=== PATIENT | female | born 1935 | race Caucasian/White ===

== ENCOUNTER 2016-07-10 09:48 | Day surgery (SDC) | payer OTHER ==
[2016-07-09 12:25] LABS: HEMATOCRIT 26.4 % (37.0-47.0); MCH 26.7 PG (27-31); MCHC 30.3 g/dL (33-37); MPV 9.3 FL (7.4-10.4)
[2016-07-10] MEDS ORDERED: BENADRYL ONE (10:08)
[2016-07-10] MEDS ORDERED: TYLENOL ONE (10:08)
[2016-07-10] MEDS ORDERED: NS 250 ML ONE (10:09)
[2016-07-10 14:57] VITALS: BP 107/61
== END 2016-07-10 14:53 | disposition home or self-care (01) ==
LOC: INF 09:48
PROVIDERS: ATTEND Internal Medicine Hematology & Oncology
DX: D64.9 Anemia, unspecified (principal); Z79.899 Other long term (current) drug therapy; Z79.51 Long term (current) use of inhaled steroids
CPT/HCPCS: 36430; 85027; 86850; 86870; 86900; 86901; 86922; J7050; P9016

== ENCOUNTER 2016-07-15 09:06 | Day surgery (SDC) | payer OTHER ==
[2016-07-15] MEDS ORDERED: NS 250 ML ONE (10:14)
[2016-07-15 10:17] LABS: INR 0.99; PROTIME 10.5 Seconds (9.2-11.7); PTT 25.7 Seconds (22.0-36.0)
== END 2016-07-15 11:15 | disposition home or self-care (01) ==
LOC: CATH 09:06
PROVIDERS: ATTEND Internal Medicine Hematology & Oncology
DX: C16.9 Malignant neoplasm of stomach, unspecified (principal)
CPT/HCPCS: 36569; 85610; 85730; J7050

== ENCOUNTER 2016-07-20 15:31 | Inpatient (IN) | payer OTHER ==
[2016-07-20] MEDS ORDERED: NS 1,000 ML IV ONE (16:07)
[2016-07-20] MEDS ORDERED: ZOFRAN IV ONE (16:07)
[2016-07-20 16:27] LABS: ALLEN TEST NO; BE 2.7 mmoll (-3.0-3.0); BLOOD TYPE ARTERIAL; DRAW SITE R BRACHIAL; METHB 1.4 % (0.0-1.5); O2(CT) 14.7 mL/dL (15.0-23.0); PCO2(98.6) 34 mmHg (35-45); PO2(98.6) 89 mmHg (60-100); SAMPLE BLOOD; SAO2 97.1 % (95.0-100.0); pH(98.6) 7.49 (7.35-7.45)
[2016-07-20 16:28] LABS: MODALITY CANNULA
--- NOTE | 2016-07-20 16:34 | PROVIDER DOCUMENTATION ---
HPI-Respiratory General - General Chief Complaint: Shortness of Breath Time Seen by Provider: 07/20/16 15:37 Source: family Allergies/Adverse Reactions: Patient Allergies Allergy/AdvReac Type Severity Reaction Status Date / Time aspirin Allergy SHORTNESS Verified 02/02/15 13:36 OF BREATH Penicillins Allergy ANAPHYLAXIS Verified 02/02/15 13:36 prednisone AdvReac Unknown Verified 02/02/15 13:36 Home Medications: Home Medication List Medication Instructions Recorded Confirmed Last Taken Type Albuterol Sulfate [Albuterol 8.5 gm IH DIRECTED 02/02/15 07/20/16 07/20/16 11 :20 History Sulfate Hfa] Folic Acid 1 mg PO DAILY 02/02/15 07/20/16 07/20/16 11:20 History Prednisone 2.5 mg PO DIRECTED 02/02/15 07/20/16 07/20/16 11:20 History Fluticasone/Vilanterol [Breo 1 each IH DAILY 07/10/16 07/20/16 07/20/16 11:20 History Ellipta Inhaler] Furosemide [Lasix] 20 mg PO PREMED 07/10/16 07/20/16 07/20/16 11:20 History Potassium Chloride 10 meq PO DAILY 07/10/16 07/20/16 07/15/16 History Hydrocodone/Acetaminophen [[place] 0.5 tab PO PRN PRN 07/20/16 07/20/16 07/20/16 13:30 History 5-325 Tablet] - History of Present Illness-Resp Nature of Presenting Problem: Per Family, patient is a 81 yo F that presents to the ER with generalized weakness, shortness of breath, and cough/congestion x 5 to 6 days. patient was recently dx with stomach CA. patient since has had steady decline in health with lethargy and weakness. She normally took care of herself prior to chemo( 1st round). Denies fever chills, n/v/d. Quality of Pain: reports: none Severity in ED: reports: moderate Onset/Duration: reports: gradual, 5 days ago, 6 days ago Timing: reports: still present, constant Context: reports: recent chemotherapy Cough Quality/Degree: reports: moderate, productive cough Current Respiratory Medication Therapy: Initiated see nurses note Modifying Factors: worse with: coughing Associated Symptoms: reports: cough, shortness of breath, short of breath, other (weakness, lethargy). denies: fever/chills, flu-like symptoms, nasal congestion, nasal drainage Similar Symptoms Previously?: No Recently seen or treated by another doctor?: Yes Review of Systems - Adult - REVIEW OF SYSTEMS - ADULT Constitutional: reports: fatique. denies: chills, fever Eyes: reports: no symptoms reported Ears, Nose, Mouth & Throat: denies: ear discharge, ear pain, sinus problem, throat pain, throat swelling Cardiovascular: denies: chest pain, palpitations, syncope Respiratory: reports: cough, shortness of breath, wheezing Gastrointestinal: denies: abdominal pain, diarrhea, nausea, vomiting Genitourinary: reports: no symptoms reported Musculoskeletal: reports: muscle weakness. denies: back pain, neck pain Integumentary: reports: no symptoms reported Neurological: denies: dizziness/vertigo, seizure, slurred speech, syncope Psychiatric: reports: no symptoms reported Endocrine: reports: no symptoms reported Hematologic/Lymphatic: reports: no symptoms reported Allergic/Immunologic: reports: no symptoms reported All Other Systems: Reviewed and Negative Past History - Adult - PAST MEDICAL HISTORY-ADULT Review of Records: reports: Old Records Reviewed, Nursing Assessment Review, Medications Reviewed Respiratory: reports: asthma, COPD Gastrointestinal: reports: cancer (stomach) Musculoskeletal: reports: fibromyalgia Endocrine/Immune: reports: thyroid disorder - PRIOR SURGERIES/PROCEDURES Surgical/Procedure History: reports: cholecystectomy, indwelling device - IMMUNIZATION STATUS Childhood Immunizations: See Nurse Assessment Flu Vaccine: See Nurse Assessment - FAMILY HISTORY Family History: reviewed, not pertinent - SOCIAL HISTORY Smoking: non-smoker Living Situation: family Physical Exam-General - PHYSICAL EXAM-ADULT Initial Vital Signs Reviewed: Yes - CONSTITUTIONAL General Appearance: mild distress, lethargic, other (ill appearing) - EYES Eyes: PERRL/EOMI, pink conjunctivae - HEAD, EARS, NOSE, MOUTH & THROAT HENMT: normocephalic/atraumatic, moist mucous membranes, normal ENT inspection - NECK Neck: full range of motion, normal inspection. negative: lymphadenopathy - RESPIRATORY Respiratory: no respiratory distress, no accessory muscle use, crackles ( bilaterally) - CARDIOVASCULAR Cardiovascular: regular rate, rhythm, no edema, no JVD - GASTROINTESTINAL (ABDOMEN) Abdominal Exam: normal bowel sounds, non tender, soft, no organomegaly, no pulsatile mass - MUSCULOSKELETAL Extremity: normal range of motion, normal inspection - SKIN Integumentary: normal color, warm/dry - NEUROLOGIC Neurologic: grossly normal, no motor/sensory deficits - PSYCHIATRIC Psych/Mental Status: normal mood/affect, normal thought content, normal thought process, oriented x 3 Progress - PLAN OF CARE/RESULTS Progress/Plan/Lab Results: Vital Signs Temp Pulse Resp BP Pulse Ox 07/20/16 16:22 80 22 99/67 99 07/20/16 15:35 98.2 F 84 19 109/63 99 aspirin Allergy (Verified 02/02/15 13:36) SHORTNESS OF BREATH Penicillins Allergy (Verified 02/02/15 13:36) ANAPHYLAXIS prednisone Adverse Reaction (Verified 02/02/15 13:36) Unknown "if I take too much of it I see little things and I blow up like the [place] blimp" able to take in small dosages Albuterol Sulfate [Albuterol Sulfate Hfa] 8.5 gm IH DIRECTED 02/02/15 Folic Acid 1 mg PO DAILY 02/02/15 Prednisone 2.5 mg PO DIRECTED 02/02/15 Fluticasone/Vilanterol [Breo Ellipta Inhaler] 1 each IH DAILY 07/10/16 Furosemide [Lasix] 20 mg PO PREMED 07/10/16 Potassium Chloride 10 meq PO DAILY 07/10/16 Hydrocodone/Acetaminophen [[place] 5-325 Tablet] 0.5 tab PO PRN PRN 07/20/16 Laboratory 07/20/16 07/20/16 07/20/16 17:10 16:20 15:50 WBC RBC Hgb Hct MCV MCH MCHC RDW Std Deviation Plt Count MPV Immature Gran % (Auto) Neut % (Auto) Lymph % (Auto) [place] % (Auto) Eos % (Auto) Baso % (Auto) Immature Gran # (Auto) Neut # (Auto) Lymph # (Auto) [place] # (Auto) Eos # (Auto) Baso # (Auto) PT INR PTT (Actin FS) D-Dimer Specimen Type ARTERIAL Sample Site R BRACHIAL pH 7.49 H pCO2 34 L pO2 89 HCO3 27.0 H Base Excess 2.7 Oxyhemoglobin 94.4 L ABG O2 Sat (Calculated) 14.7 L ABG O2 Saturation 97.1 ABG Carboxyhemoglobin 1.40 ABG Methemoglobin 1.4 Eleazar Test NO A-a O2 Difference 68.0 Total Hemoglobin 11.0 L Lactate 0.80 Liter Flow 2.0 Blood Gas Modality CANNULA FiO2 % 28.0 Sodium Potassium Chloride Carbon Dioxide Anion Gap BUN Creatinine Estimated GFR/1.73 m2 BUN/Creatinine Ratio Glucose Calculated Osmolality Calcium Magnesium Total Bilirubin AST ALT Alkaline Phosphatase Creatine Kinase Troponin T < 0.010 Gxt-N-Uerlgntpvrt Pept Total Protein Albumin Globulin Albumin/Globulin Ratio Urine Source CATH Urine Color STRAW Urine Turbidity CLEAR Urine pH 5.0 Ur Specific [place] 1.008 Urine Protein NEGATIVE Ur Glucose (Stick) NEGATIVE Ur Ketones (Stick) NEGATIVE Urine Blood NEGATIVE Urine Nitrite NEGATIVE Urine Bilirubin NEGATIVE Urobilinogen Dipstick NORMAL Urine Leukocytes SMALL A Urine WBC (Auto) <10 Urine RBC (Auto) <10 U Epithel Cells (Auto) <10 Urine Bacteria (Auto) NEGATIVE 07/20/16 07/20/16 07/20/16 15:50 15:50 15:50 WBC RBC Hgb Hct MCV MCH MCHC RDW Std Deviation Plt Count MPV Immature Gran % (Auto) Neut % (Auto) Lymph % (Auto) [place] % (Auto) Eos % (Auto) Baso % (Auto) Immature Gran # (Auto) Neut # (Auto) Lymph # (Auto) [place] # (Auto) Eos # (Auto) Baso # (Auto) PT 10.1 INR 0.95 PTT (Actin FS) 24.5 D-Dimer 1.38 H Specimen Type Sample Site pH pCO2 pO2 HCO3 Base Excess Oxyhemoglobin ABG O2 Sat (Calculated) ABG O2 Saturation ABG Carboxyhemoglobin ABG Methemoglobin Eleazar Test A-a O2 Difference Total Hemoglobin Lactate Liter Flow Blood Gas Modality FiO2 % Sodium Potassium Chloride Carbon Dioxide Anion Gap BUN Creatinine Estimated GFR/1.73 m2 BUN/Creatinine Ratio Glucose Calculated Osmolality Calcium Magnesium Total Bilirubin AST ALT Alkaline Phosphatase Creatine Kinase Troponin T Aqh-M-Ovettfdiaqh Pept 2398 H Total Protein Albumin Globulin Albumin/Globulin Ratio Urine Source Urine Color Urine Turbidity Urine pH Ur Specific [place] Urine Protein Ur Glucose (Stick) Ur Ketones (Stick) Urine Blood Urine Nitrite Urine Bilirubin Urobilinogen Dipstick Urine Leukocytes Urine WBC (Auto) Urine RBC (Auto) U Epithel Cells (Auto) Urine Bacteria (Auto) 07/20/16 07/20/16 15:50 15:50 WBC 16.54 H RBC 3.87 L Hgb 10.3 L Hct 33.4 L MCV 86.3 MCH 26.6 L MCHC 30.8 L RDW Std Deviation 19.4 H Plt Count 81 L MPV 10.6 H Immature Gran % (Auto) 0.7 H Neut % (Auto) 92.4 H Lymph % (Auto) 3.0 L [place] % (Auto) 3.8 Eos % (Auto) 0.0 Baso % (Auto) 0.1 Immature Gran # (Auto) 0.11 H Neut # (Auto) 15.29 H Lymph # (Auto) 0.49 L [place] # (Auto) 0.63 H Eos # (Auto) 0.00 Baso # (Auto) 0.02 PT INR PTT (Actin FS) D-Dimer Specimen Type Sample Site pH pCO2 pO2 HCO3 Base Excess Oxyhemoglobin ABG O2 Sat (Calculated) ABG O2 Saturation ABG Carboxyhemoglobin ABG Methemoglobin Eleazar Test A-a O2 Difference Total Hemoglobin Lactate Liter Flow Blood Gas Modality FiO2 % Sodium 137 Potassium 3.3 L Chloride 98 Carbon Dioxide 26 Anion Gap 13 BUN 29 H Creatinine 1.6 H Estimated GFR/1.73 m2 31 BUN/Creatinine Ratio 18 Glucose 88 Calculated Osmolality 279 Calcium 8.0 L Magnesium 1.8 Total Bilirubin 0.48 AST 10 ALT 7 L Alkaline Phosphatase 139 H Creatine Kinase 31 Troponin T Dkg-S-Igjeoocpdun Pept Total Protein 4.8 L Albumin 2.5 L Globulin 2.3 Albumin/Globulin Ratio 1.1 Urine Source Urine Color Urine Turbidity Urine pH Ur Specific [place] Urine Protein Ur Glucose (Stick) Ur Ketones (Stick) Urine Blood Urine Nitrite Urine Bilirubin Urobilinogen Dipstick Urine Leukocytes Urine WBC (Auto) Urine RBC (Auto) U Epithel Cells (Auto) Urine Bacteria (Auto) Orders Category Date Time Status Cardiac Monitoring DIRECTED Care 07/20/16 16:07 Active Saline Loc NOW Care 07/20/16 16:07 Active CHEST-PORTABLE [RAD] Stat Exams 07/20/16 16:07 Draft ABG [RESP] Routine Lab 07/20/16 16:20 Completed BLOOD CULTURE [BLDCUL] Stat Lab 07/20/16 16:42 Received CBC WITH ELECTRONIC DIFF [HEME] Stat Lab 07/20/16 15:50 Completed CK PROFILE [SP CHEM] Stat Lab 07/20/16 15:50 Completed COMPREHENSIVE METABOLIC PANEL [CHEM] Stat Lab 07/20/16 15:50 Completed D-DIMER [CHEM] Stat Lab 07/20/16 15:50 Completed LACTATE, PLASMA [CHEM] Stat Lab 07/20/16 16:21 Ordered MAGNESIUM [CHEM] Stat Lab 07/20/16 15:50 Completed PRO B-NATRIURETIC PEPTIDE Stat Lab 07/20/16 15:50 Completed PROTIME WITH INR [COAG] Stat Lab 07/20/16 15:50 Completed PTT [COAG] Stat Lab 07/20/16 15:50 Completed TROPONIN T Stat Lab 07/20/16 15:50 Completed UA NIMS W/REFLEX CULT [URINALYSIS] Stat Lab 07/20/16 17:10 Results URINE CULTURE [RM] Routine Lab 07/20/16 17:26 Received URINE MANUAL MICROSCOPIC [URINALYSIS] Stat Lab 07/20/16 17:10 Results 0.9% Sodium Chloride Inj [Ns] 1,000 ml Med 07/20/16 16:07 Active IV 250 mls/hr Albuterol 2.5MG/Ipratrop 0.5MG [Duoneb (A & A)] Med 07/20/16 17:29 Discontinued 3 ml INH NOW ONE Levofloxacin 500 mg/D5w [Levaquin 500 mg/D5w] 100 ml Med 07/20/16 17:27 Active IV NOW Ondansetron [Zofran] Med 07/20/16 16:07 Discontinued 4 mg IV NOW ONE Aerosol Treatments Routine Oth 07/20/16 17:29 Active Aerosol Treatments Stat Oth 07/20/16 17:29 Active EKG [EKG] Stat Ther 07/20/16 16:07 Ordered - EKG 1 Time of EKG reading by physician:: 17:26 EKG Read and Signed by:: Aicha Huang EKG Interpretation (*Must complete 3 of following elements*): Abnormal Rate: 83 Rhythm: Sinus Rhythm with PACs Lookout: left QRS: LBB, RBB (incomplete) ST Wave: normal - XRAY 1 XRAY Study: Chest Impression: Abnormal XRAY Interpretation: low lung volumes, no acute pathology per - CONSULTS/PCP/HOSPITALIST Notification #1 *Consult/PCP/Hospitalist*: Time Discussed: 17:35 Consult Disposition: Will see in ED, Admit Departure - Departure Time of Disposition Order: 17:36 DIAGNOSIS: Generalized weakness, Shortness of breath, Lethargy Stomach cancer Qualifiers: Malignant neoplasm of stomach location: unspecified location Qualified Code(s) : C16.9 - Malignant neoplasm of stomach, unspecified Disposition: ADMITTED INPATIENT 09 Certified Medical Emergency: Emergent Condition: Stable Attestation - Scribe Verification/Attestation Scribe:: Joseph Brown Acting as Scribe for:: Aicha Huang Scribe documention review:: This chart was documented by a scribe and accurately reflects the service the provider performed and the decisions made by the provider. Physician Attestation - Physician Attestation I, the provider, attest to the following statement:: Aicha Huang Physician documentation Attestation:: This documentation recorded by the scribe accurately reflects the service I personally performed and the decisions made by me.
[2016-07-20 16:59] LABS: BASO% 0.1 % (0.0-0.8); HEMATOCRIT 33.4 % (37.0-47.0); HEMOGLOBIN 10.3 g/dL (12.0-16.0); IMM GRAN# 0.11 X1000 (0.0-0.04); IMM GRAN% 0.7 % (0.0-0.5); LYMPH# 0.49 X1000 (1.2-3.4); MANUAL DIFF NEEDED? NO; MCH 26.6 PG (27-31); MCHC 30.8 g/dL (33-37); MCV 86.3 FL (81-99); MONO# 0.63 X1000 (0.11-0.59); MONO% 3.8 % (1.7-9.3); MPV 10.6 FL (7.4-10.4); NEUT% 92.4 % (42.2-75.2); PLT 81 X1000 (130-400); RBC 3.87 XMIL (4.2-5.4)
[2016-07-20 17:03] LABS: INR 0.95; PROTIME 10.1 Seconds (9.2-11.7); PTT 24.5 Seconds (22.0-36.0)
--- NOTE | 2016-07-20 17:08 | Diag Imaging Result Document ---
PROCEDURE NAME: CHEST-PORTABLE - 07/20/2016 SINGLE FRONTAL RADIOGRAPH OF THE CHEST: COMPARISON: 10/25/2012. FINDINGS: A right PICC line is in place with the tip projecting over the lower SVC in the region of the atriocaval junction in the expected position. Inspiration is suboptimal and there is elevation of the right hemidiaphragm similar to the previous study. The lungs are grossly clear, otherwise. There is no definite pleural fluid collection. Cardiac silhouette and central vasculature are grossly unremarkable for an AP study. IMPRESSION: Low lung volumes, but no definite acute pathology by plain radiograph.
[2016-07-20 17:19] LABS: URINE SOURCE CATH
[2016-07-20 17:19] LABS: ALBUMIN 2.5 g/dL (3.5-5.0); MAGNESIUM 1.8 mg/dL (1.5-2.7); POTASSIUM 3.3 mmol/L (3.5-5.1); TOTAL BILIRUBIN 0.48 mg/dL (0.20-1.00); TOTAL PROTEIN 4.8 g/dL (6.3-8.3)
[2016-07-20 17:23] LABS: BILIRUBIN URINE NEGATIVE (NEGATIVE); BLOOD URINE NEGATIVE (NEGATIVE); COLOR STRAW; GLUCOSE URINE NEGATIVE (NEGATIVE); LEUKOCYTES URINE SMALL (NEGATIVE); NITRITE URINE NEGATIVE (NEGATIVE); PROTEIN URINE NEGATIVE (NEGATIVE); SP GRAVITY URINE 1.008; TURBIDITY URINE CLEAR (CLEAR); URINE MICRO REVIEW NEEDED? YES; UROBILINOGEN URINE NORMAL (NORMAL)
[2016-07-20 17:25] LABS: UR EPITHELIAL CELLS <10 /HPF (<10); URINE BACTERIA NEGATIVE /HPF; URINE CULTURE NEEDED? YES; URINE RBC <10 /HPF (<10); URINE WBC <10 /HPF (<10)
[2016-07-20] MEDS ORDERED: LEVAQUIN 500 MG/D5W 100 ML IV ONE (17:27)
[2016-07-20] MEDS ORDERED: DUONEB (A & A) INH ONE (17:29)
[2016-07-20 17:43] LABS: URINE CASTS NONE SEEN; URINE CRYSTALS NONE SEEN; URINE SMALL ROUND CELLS NONE SEEN
[2016-07-20] MEDS: NS 1,000 ML IV ONE ×2 (17:56→19:09)
[2016-07-20] MEDS ORDERED: DILAUDID IV PRN (17:59)
[2016-07-20] MEDS ORDERED: ZOFRAN IV PRN (18:00)
[2016-07-20] MEDS: SODIUM CHLORIDE 0.9% INJ SCH (18:24)
[2016-07-20] MEDS: PROTONIX IV SCH (18:24)
[2016-07-20] MEDS ORDERED: POTASSIUM CHLORIDE 40 MEQ/SWI 100 ML IV ONE (18:30)
[2016-07-20] MEDS ORDERED: LASIX IV ONE (18:44)
[2016-07-20] MEDS ORDERED: LEVAQUIN 500 MG in NS 100 ML IV SCH (19:00)
[2016-07-20] MEDS: DUONEB (A & A) INH SCH ×2 (19:30→23:30)
[2016-07-20] MEDS: MUCOMYST 20% INH SCH (19:30)
[2016-07-20] MEDS: SOLU-MEDROL IV SCH (20:17)
--- NOTE | 2016-07-20 21:04 | Diag Imaging Result Document ---
PROCEDURE NAME: THORAX/ABDOMEN/PELVIS W/O CONT - 07/20/2016 STUDY: CT chest, abdomen and pelvis without contrast. No pleural effusions. The heart is mildly prominent. There are calcified mediastinal and left hilar lymph nodes, and there is a calcified granuloma in the left lower lobe. No enlarged noncalcified nodes. Increased markings in the lung bases believed to be a combination of atelectasis and bronchiectasis. No consolidation. I do not identify any lung nodules. Mild scoliosis. IMPRESSION: 1. Basilar atelectasis and bronchiectasis. 2. No pneumonia although there is evidence of a prior granulomatous infection. STUDY: Abdomen and pelvis without oral or intravenous contrast. COMPARISON: Compared to a recent MRI of the abdomen and a PET CT. There is a small amount of fluid about the liver. This has increased compared to the prior exams. There is marked thickening to the gastric wall with multiple perigastric masses. These were present on the prior studies. No interval improvement. Enlarged right adrenal gland similar to the prior studies. The gallbladder has been removed. Normal spleen and left adrenal gland. There is a nonobstructing right renal stone. No hydronephrosis. No aortic aneurysm. Mildly prominent paraaortic lymph nodes similar to the prior studies. The spleen is mildly prominent. No bowel obstruction. The urinary bladder is distended and appears normal. There is a small amount of free fluid within the pelvis. I believe there is a uterine fibroid. This is unchanged. There are scattered colonic diverticula. Trace fluid in the left pericolic gutter. IMPRESSION: Slight interval increase in the amount of fluid about the liver, otherwise stable CT of the abdomen and pelvis. A preliminary report was given at 7:54 p.m. [facility]
--- NOTE | 2016-07-20 22:38 | HISTORY AND PHYSICAL ---
PRIMARY CARE PHYSICIAN: Reno Cary M.D. ONCOLOGIST: Bang Gonzalez M.D. CHIEF COMPLAINT: A 4-day history of increasing shortness of breath and productive cough. HISTORY OF PRESENT ILLNESS: Ms. Moura is a 81-year-old female with a history of recently diagnosed metastatic gastric cancer, morbid obesity and COPD who was brought to the ER by family after the patient was noted to be short of breath and lethargic. According to the patient's daughter the patient has been suffering from increasing shortness of breath and productive cough for the last 3 days. The patient does have a history of chronic obstructive pulmonary disorder and is on several bronchodilators at home. The patient was diagnosed with metastatic gastric cancer about a month ago and the patient had her first chemotherapy treatment last week. According to family, the patient's appetite was good up until this past weekend where the patient just did not feel like eating or drinking anything. The patient denied having any chest pain, headache , dizziness or recent syncopal episodes. In the ER, the patient was noted to have a white count of 16,000 and a BUN of 29 with a creatinine of 1.6. A chest x-ray was done that was unremarkable. PAST MEDICAL HISTORY: 1. Metastatic gastric carcinoma. 2. COPD. 3. Morbid obesity. 4. Polymyalgia rheumatica. 5. Psoriasis. PAST SURGICAL HISTORY: Cholecystectomy. SOCIAL HISTORY: Patient lives at home with family. She is a nonsmoker and does not drink alcoholic beverages. FAMILY HISTORY: Noncontributory due to age. ALLERGIES: 1. Aspirin. 2. Penicillin. 3. Prednisone. HOME MEDICATIONS: 1. Prednisone 2.5 mg p.o. as directed. 2. [place] 5/325, 1 tab half oral every 4 hours p.r.n. for pain 3. Folic acid 1 mg p.o. daily. 4. Breo 1 inhalation daily. 5. Albuterol inhaler q.4 hours p.r.n. for shortness of breath. 6. Potassium chloride 10 mEq oral daily. REVIEW OF SYSTEMS: All other review of systems are negative. Please refer to the history of present illness for pertinent positives and negatives. PHYSICAL EXAMINATION: VITAL SIGNS: Temperature 98.6 degrees, blood pressure 100/68, heart rate 81, respirations 16, O2 saturations 99% on 3 L nasal cannula. GENERAL: This is an elderly female who appears to be chronically ill, lying comfortably in bed, in no acute distress. HEAD: Normocephalic, atraumatic. NECK: Supple. No JVD. No lymphadenopathy. HEART: S1, S2 normal. Regular rate and rhythm. LUNGS: Coarse breath sounds bilaterally with diffuse rhonchi. ABDOMEN: Positive bowel sounds. Soft, obese, nontender, nondistended. EXTREMITIES: No edema. No cyanosis. No calf tenderness. NEUROLOGIC: The patient is alert and oriented x3. No focal neurologic deficits noted. LABS: White blood cell count 16.5, hemoglobin 10.3, hematocrit 33.4, platelets 81,000. ABG: pH 7.49, pCO2 34, PO2 89, bicarbonate 27, sodium 137, potassium 3.3, chloride 98, CO2 26, BUN 29, creatinine 1.6, glucose 88, calcium 8, magnesium 1.8, alkaline phosphatase 139, ammonia 46, troponin less than 0.01. ProBNP 2399, albumin 2.5. Chest x-ray shows low lung volumes. ASSESSMENT AND PLAN: 1. Acute bronchitis. We will check a sputum Gram stain and culture. We will start the patient on IV antibiotics and scheduled bronchodilator therapy as well as supplemental oxygen. 2. Acute chronic obstructive pulmonary disease exacerbation. We will start the patient on IV steroids, Mucomyst and bronchodilator therapy. 3. Acute kidney injury. The patient's baseline creatinine is unknown. We will monitor this closely. We will check urine electrolytes and monitor the patient's urine output closely. We will avoid nephrotoxic agents. 4. Leukocytosis. This is most likely secondary to either the bronchitis or recent Neulasta shot. We will continue to monitor this closely. 5. Morbid obesity. Aware. 6. Severe protein calorie malnutrition. We will consult the dietitian. We will start the patient on Ensure dietary supplements. 7. Metastatic gastric carcinoma s/p chemotherapy. Will consult . 8. Thrombocytopenia. We will hold anticoagulation at this time. 9. Gastrointestinal prophylaxis. We will start the patient on IV Protonix. 10. The plan of care was discussed with the patient's family at the bedside. MTDD
[2016-07-20 23:24] LABS: UR CREAT RANDOM 31.1 mg/dL (11-20)
[2016-07-21] MEDS ORDERED: TYLENOL PO PRN (02:41)
[2016-07-21] MEDS: SOLU-MEDROL IV SCH ×2 (03:04→13:19)
[2016-07-21] MEDS: DUONEB (A & A) INH SCH ×6 (03:09→23:08)
[2016-07-21] MEDS: MUCOMYST 20% INH SCH ×2 (07:20→19:49)
--- NOTE | 2016-07-21 07:40 | EKG Report ---
Test Performed on : 07/21/2016 06:09:38 AM Test Reason : chf Blood Pressure : / mmHG Vent. Rate : 094 BPM Atrial Rate : 094 BPM P-R Int : 190 ms QRS Dur : 098 ms QT Int : 370 ms P-R-T Axes : 000 -31 038 degrees QTc Int : 462 ms Sinus rhythm. with premature atrial complexes. Left axis deviation Septal infarct , age undetermined Abnormal ECG When compared with ECG of 20-JUL-2016 17:26, (Unconfirmed) Septal infarct is now present ST now depressed in Inferior leads Confirmed by Edward KIM, Eleazar Nation ([id number]) on 07/21/2016 5:23:33 PM
--- NOTE | 2016-07-21 07:42 | EKG Report ---
Test Performed on : 07/20/2016 5:26:05 PM Test Reason : Chest Pain Blood Pressure : / mmHG Vent. Rate : 083 BPM Atrial Rate : 083 BPM P-R Int : 176 ms QRS Dur : 094 ms QT Int : 382 ms P-R-T Axes : 090 -44 029 degrees QTc Int : 448 ms Sinus rhythm. with premature atrial complexes. Left axis deviation Incomplete right bundle branch block Possible Lateral infarct (cited on or before 02-JUL-2008) Abnormal ECG When compared with ECG of 02-JUL-2008 17:43, premature atrial complexes. are now present Unconfirmed Result
[2016-07-21] MEDS: FOLIC ACID PO SCH (07:59)
[2016-07-21] MEDS: NS 1,000 ML IV SCH (10:23)
[2016-07-21 10:43] LABS: BASO% 0.1 % (0.0-0.8); EOS# 0.01 X1000 (0.0-0.7); HEMATOCRIT 32.7 % (37.0-47.0); HEMOGLOBIN 10.3 g/dL (12.0-16.0); IMM GRAN# 1.07 X1000 (0.0-0.04); IMM GRAN% 4.7 % (0.0-0.5); LYMPH# 0.21 X1000 (1.2-3.4); LYMPH% 0.9 % (20.5-51.1); MANUAL DIFF NEEDED? YES; MCHC 31.5 g/dL (33-37); MCV 85.6 FL (81-99); MONO# 0.55 X1000 (0.11-0.59); MONO% 2.4 % (1.7-9.3); MPV 9.6 FL (7.4-10.4); NEUT% 91.9 % (42.2-75.2); PLT 81 X1000 (130-400); RBC 3.82 XMIL (4.2-5.4)
[2016-07-21 10:50] LABS: ALBUMIN 2.7 g/dL (3.5-5.0); CALCIUM 7.7 mg/dL (8.8-10.2); POTASSIUM 3.5 mmol/L (3.5-5.1)
[2016-07-21 11:10] LABS: BANDS 11 % (0-1); MONO 1 % (1-9)
--- NOTE | 2016-07-21 12:57 | PROGRESS NOTE ---
DATE: 07/21/2016 SUBJECTIVE: The patient is awake and alert this morning. Her respiratory status has improved. OBJECTIVE: Vital Signs: Temperature 98 degrees, blood pressure 101/59, heart rate 107, respirations 20, O2 saturations 99% on 2 L nasal cannula. General: This is a morbidly obese female, lying in bed, in no acute distress. Head: Normocephalic atraumatic. Heart: S1, S2. Normal. Tachycardic. Lungs: Mild expiratory wheezes. No crackles. No rales. Abdomen: Positive bowel sounds. Soft, obese, nontender, nondistended. Extremities: No edema. No cyanosis. No calf tenderness. Neurologic: The patient is alert and oriented. The patient is hard of hearing. LABS: White blood cell count 22, hemoglobin 10, hematocrit 32, platelets 81, 000. Sodium 133, potassium 3.5, chloride 92, CO2 25, BUN 31, creatinine 1.7, glucose 206. ASSESSMENT AND PLAN: 1. Acute chronic obstructive pulmonary disease exacerbation. Improved today. Will switch the patient to prednisone. Continue on levaquin and bronchodilator therapy. 2. Acute kidney injury. This is most likely secondary to dehydration. We will start the patient on normal saline and monitor the patient's urine output closely. 3. Leukocytosis. Multifactorial. The patient recently received a Neulasta shot. We will continue to monitor the white count closely. 4. Morbid obesity. Aware. 5. Severe protein calorie malnutrition. Continue with Ensure with each meal. 6. Metastatic gastric carcinoma. Oncology has been consulted. 7. Thrombocytopenia. Stable. 8. Gastrointestinal prophylaxis. Continue on IV Protonix. 9. Continue with physical therapy. 10. The plan of care was discussed with the patient's daughter at the bedside. [id number]
--- NOTE | 2016-07-21 14:43 | CONSULTATION ---
DATE OF CONSULTATION: 07/21/2016 ADMITTING PHYSICIAN: Dr. Yolanda Mello. REQUESTING PHYSICIAN: Dr. Mello. PRIMARY CARE PHYSICIAN: Dr. Reno Cary. ONCOLOGIST: Dr. Bang Gonzalez. We appreciate this consult. CHIEF COMPLAINT: Gastric adenocarcinoma. HISTORY OF PRESENT ILLNESS: Ms. Moura is a 81-year-old female, who is well known to us with a history of recently diagnosed metastatic gastric cancer who is currently on 5 FU/leucovorin. She is status post her cycle 1, day 1 on 07/16/2016 which she tolerated well. The patient was however brought to the emergency room by her family after she was noted to be short of breath and lethargic. According to the patient's daughter the patient has been having worsening shortness of breath and productive cough for the last 3 days. She does have a history of COPD and chronic bronchitis and is on multiple bronchodilators at home. Upon presentation to [facility] Emergency Department the patient was found to have a white blood cell count of 16,000. Chest x- ray was obtained which was unremarkable. The patient did undergo CT of the chest, abdomen and pelvis which revealed multiple perigastric masses with an enlarged right adrenal gland and mildly prominent para-aortic lymph nodes as well as an increase in fluid in the liver. PAST MEDICAL HISTORY: 1. Metastatic gastric carcinoma. 2. COPD. 3. Morbid obesity. 4. Polymyalgia rheumatica. 5. Psoriasis. PAST SURGICAL HISTORY: Cholecystectomy. SOCIAL HISTORY: The patient does not use alcohol, tobacco or illicit drugs. FAMILY HISTORY: Negative for any oncologic or hematologic problem. MEDICATIONS ON ADMISSION: 1. Prednisone. 2. [place]. 3. Folic acid. 4. Breo. 5. Albuterol. 6. Potassium chloride. ALLERGIES: Aspirin, penicillin, and prednisone. REVIEW OF SYSTEMS: A 14 point review of systems was obtained and is negative except as mentioned in HPI. PHYSICAL EXAM: General Appearance: Ms. Moura is a pleasant 81-year-old, morbidly obese female who is lying supine in bed in no apparent distress. Vital Signs: Temperature 98.1 degrees, blood pressure 101/59, heart rate 98, respirations of 20, O2 saturation is 93% on room air. HEENT: Normocephalic, atraumatic. Mucous membranes are pink and moist. Sclerae anicteric. Extraocular movements intact. Neck: Supple. Lungs: With coarse breath sounds throughout. Chest expansion is equal bilaterally. CV: S1, S2 is heard without murmur, rub or gallop. Abdomen: Soft, nondistended, nontender. Bowel sounds positive all quadrants. No rebound or guarding noted. Extremities: Without clubbing or cyanosis. She does have 1+ bilateral lower extremity edema. Dermatologic: No rashes, bruises or lesions. Neurologic: The patient is awake, alert, and oriented x3. She has no focal deficits at this time. DIAGNOSTIC DATA: Hemoglobin 10.3, hematocrit 33.4. White blood cell count 16.54, platelets 81,000, ANC is 15.29, INR 0.95. Sodium 137, potassium 3.3, chloride 98, CO2 is 26, BUN 29, creatinine 1.6, and glucose is 88. EKG reveals sinus rhythm with PACs. CT of the chest, abdomen and pelvis reveals multiple perigastric masses with an enlarged right adrenal gland and mildly prominent para-aortic lymph nodes as well as an increase in fluid in the liver. ASSESSMENT AND PLAN: 1. Locally advanced gastric adenocarcinoma recently diagnosed. The patient is status post cycle 1, day 1 of 5 FU/leucovorin on 07/16/2016. The patient did tolerate treatment well and had no significant adverse events following treatment. Presently we will hold treatment until the patient's acute illness is over. 2. Acute bronchitis currently on Levaquin which is improving. 3. Exacerbation of chronic obstructive pulmonary disease. On IV Solu-Medrol at this time. The patient reports improvement of dyspnea as well. 4. Acute kidney insufficiency which is improving on IV fluids. Creatinine is currently 1.6. 5. Leukocytosis with a white blood cell count of 16.54 which is probably secondary to #2. We will continue to follow CBC. 6. Morbid obesity which is stable. 7. Thrombocytopenia with a platelet count of 88,000. The patient denies any recent bleeding or easy bruising. We will continue to follow the patient's CBC. 8. We will follow along with you and make further recommendations pending outcomes. The above reflects the history, exam, assessment and plan of Dr. Gonzalez. Dictated by JIGNESH Fine for Bang Gonzalez MD
[2016-07-21 14:45] LABS: FREE T4 0.61 ng/dL (0.93-1.70)
--- NOTE | 2016-07-21 15:35 | ECHO REPORT ---
ORDER DATE: 07/21/2016 INDICATION: CHF, shortness of breath, cough, COPD. FINDINGS: 1. Right atrium is normal size at 3 cm. 2. Trace tricuspid regurgitation. RV systolic pressure 34. 3. Normal RV size and systolic function. 4. Trace pulmonic insufficiency. 5. Normal left atrial size at 3.6 cm. 6. No mitral valve prolapse. Trace mitral regurgitation. 7. Normal LV size, end-diastolic dimension of 4 cm. Normal wall thicknesses with a posterior and interventricular septal wall thickness of 0.6 and 0.7 cm respectively. LV systolic function does appear to be hyperdynamic with an estimated EF greater than 70%. 8. Aortic valve appears to open well. Is sclerotic but no significant stenosis is noted. There is trace aortic insufficiency. 9. Aorta appears dilated at the root in the ascending thoracic aorta with a measure of 4 cm. 10. There is no pericardial effusion identified.
[2016-07-21] MEDS: PROTONIX IV SCH (18:03)
[2016-07-21] MEDS: LEVAQUIN 500 MG/D5W 100 ML IV SCH (18:03)
[2016-07-22] MEDS: NS 1,000 ML IV SCH (00:42)
[2016-07-22] MEDS: DUONEB (A & A) INH SCH ×6 (03:12→22:58)
[2016-07-22] MEDS: MUCOMYST 20% INH SCH ×2 (07:43→19:33)
[2016-07-22 09:04] LABS: MANUAL DIFF NEEDED? YES
[2016-07-22 09:09] LABS: ALBUMIN 2.9 g/dL (3.5-5.0); CALCIUM 8.2 mg/dL (8.8-10.2); POTASSIUM 3.8 mmol/L (3.5-5.1); TOTAL BILIRUBIN 0.31 mg/dL (0.20-1.00); TOTAL PROTEIN 5.3 g/dL (6.3-8.3)
[2016-07-22] MEDS: PREDNISONE PO SCH (09:09)
[2016-07-22] MEDS: FOLIC ACID PO SCH (09:10)
[2016-07-22 09:18] LABS: HEMATOCRIT 37.1 % (37.0-47.0); HEMOGLOBIN 10.9 g/dL (12.0-16.0); MCH 27.1 PG (27-31); MCHC 29.4 g/dL (33-37); MCV 92.3 FL (81-99); MPV 12.3 FL (7.4-10.4); PLT 86 X1000 (130-400); RBC 4.02 XMIL (4.2-5.4)
[2016-07-22 09:26] LABS: BANDS 9 % (0-1)
[2016-07-22] MEDS ORDERED: VANCOMYCIN IV PER PHARMACY MISC SCH (11:00)
[2016-07-22] MEDS: MERREM 500 MG in NS 50 ML IV SCH ×2 (12:58→23:27)
[2016-07-22] MEDS ORDERED: VANCOMYCIN 1,650 MG in NS 250 ML IV ONE (13:00)
[2016-07-22 13:33] LABS: UR PROT RANDOM 12.7 mg/dL
--- NOTE | 2016-07-22 15:00 | PROGRESS NOTE ---
DATE: 07/22/2016 SUBJECTIVE: The patient states that she feels a lot better today. She did get up and walk about 200 feet with the physical therapist. OBJECTIVE: Vital Signs: Temperature 97.9 degrees, blood pressure 103/51, heart rate 88, respirations 18, O2 saturation is 94% on 2 L nasal cannula. General: This is a morbidly obese, elderly female, lying in bed, in no acute distress. Head: Normocephalic, atraumatic. Heart: S1, S2. Normal. Regular rate and rhythm. Lungs: Coarse breath sounds bilaterally with rhonchi. Abdomen: Positive bowel sounds. Soft, obese, nontender, nondistended. Extremities: No edema. No cyanosis. No calf tenderness. Neurologic: The patient is alert and oriented x3. She is hard of hearing. LABS: White blood cell count 22.9, hemoglobin 10, hematocrit 37, platelets 86,000. Sodium 140, potassium 3.8, chloride 87, CO2 20, BUN 30, creatinine 1.8, glucose 66. Urine culture is growing gram-positive cocci. ASSESSMENT AND PLAN: 1. Acute chronic obstructive pulmonary disease exacerbation. Slowly improving. The patient continues to have rhonchi on exam. Her white count remains elevated. Will add Merrem and consult the machine shop specialist for further recommendations. Continue on bronchodilator therapy plus prednisone. We will also check a sputum Gram stain and culture. 2. Locally advanced gastric carcinoma. Management as per the oncologist. 3. Acute kidney injury. The patient's urine output is excellent. However, her creatinine is still slowly rising. Will switch the patient to half normal saline and monitor her urine output closely. If there is no improvement tomorrow will consult the licensed psychiatric technician. 4. Morbid obesity. Aware. 5. Leukocytosis. Unchanged. Continue on IV antibiotic therapy. 6. Thrombocytopenia. Stable. 7. Continue physical therapy.
[2016-07-22] MEDS: 1/2 NS 1,000 ML IV SCH (16:58)
[2016-07-22] MEDS: PROTONIX IV SCH (19:22)
[2016-07-22] MEDS: LEVAQUIN 500 MG/D5W 100 ML IV SCH (19:22)
[2016-07-22] MEDS: SODIUM CHLORIDE 0.9% INJ SCH (19:22)
[2016-07-22] MEDS: MIRALAX PO SCH (23:34)
[2016-07-22] MEDS: DULCOLAX PR SCH (23:34)
[2016-07-23] MEDS: DUONEB (A & A) INH SCH ×6 (03:33→23:31)
--- NOTE | 2016-07-23 04:26 | CONSULTATION ---
DATE OF CONSULTATION: 07/22/2016 REQUESTING PHYSICIAN: Yolanda Mello MD REASON FOR CONSULTATION: COPD exacerbation. HISTORY OF PRESENT ILLNESS: Ms. Moura is a 81-year-old white female, never smoker, who reports she has had lifelong difficulty with breathing. 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 She also could not be around cats because it causes sneezing and shortness of breath. Over the last 20 years, she has required approximately 10 hospitalizations for breathing difficulty. She did see a motel operator at [place] approximately 1 year ago and she has been maintained on albuterol nebulizers. The patient was recently diagnosed with locally advanced gastric cancer and she is undergoing neoadjuvant chemotherapy by the family's description to see if she can undergo a gastroc resection. PAST MEDICAL HISTORY/PROBLEM LIST: 1. Gastric carcinoma as per above. 2. Obesity. 3. Polymyalgia rheumatica. 4. Psoriasis. SOCIAL HISTORY: Patient is a never smoker. No alcohol use. FAMILY HISTORY: Noncontributory to current presentation. PHYSICAL EXAMINATION: General: Reveals an obese, white female, resting comfortably, and in no distress. HEENT: Pupils are equal and reactive oropharynx is clear. Neck: Supple. Chest: Reveals scattered wheezing with rhonchi throughout all lung adler. Cardiac: Distant heart sounds. Normal S1, normal S2. Abdomen: Obese and soft without hepatosplenomegaly. Extremities: Without edema. LABORATORIES: CT scan of the thorax reveals mild atelectasis with minor amounts of bronchiectasis. CT scan of the abdomen reveals slight increase amount of fluid around the liver. Arterial blood gas reveals pH 7.49, pCO2 of 34, PO2 of 89. IMPRESSION: A 81-year-old with lifelong asthma who was admitted to the hospital with an asthma exacerbation. The patient reports she is clinically improving on antibiotics, steroids and nebulizer therapy. The patient is currently being treated for locally advanced gastric carcinoma. RECOMMENDATIONS: 1. Continue antibiotics steroids and nebulizer treatment as you are doing. 2. Please confirm her home dose of Breo because the dosing is not indicated on her intake medicines. If she is on the lower strength (100 mcg), she should be increased to 200 mcg at the time of discharge. 3. Steroid taper over the next 2 weeks. 4. Yearly influenza vaccines. 5. Additional recommendations pending hospital course. I would be more than happy to follow her as an outpatient.
[2016-07-23] MEDS: 1/2 NS 1,000 ML IV SCH ×2 (05:44→09:08)
[2016-07-23 07:21] LABS: BASO% 0.5 % (0.0-0.8); EOS# 0.01 X1000 (0.0-0.7); EOS% 0.1 % (0.0-10.0); HEMATOCRIT 29.2 % (37.0-47.0); IMM GRAN% 2.1 % (0.0-0.5); LYMPH# 0.67 X1000 (1.2-3.4); LYMPH% 3.5 % (20.5-51.1); MANUAL DIFF NEEDED? YES; MCH 26.5 PG (27-31); MCHC 30.8 g/dL (33-37); MCV 86.1 FL (81-99); MONO# 2.09 X1000 (0.11-0.59); MONO% 10.9 % (1.7-9.3); MPV 10.1 FL (7.4-10.4); NEUT% 82.9 % (42.2-75.2); PLT 68 X1000 (130-400); RBC 3.39 XMIL (4.2-5.4)
[2016-07-23] MEDS: MUCOMYST 20% INH SCH ×2 (07:26→19:45)
[2016-07-23 07:47] LABS: ALBUMIN 2.3 g/dL (3.5-5.0); CALCIUM 7.5 mg/dL (8.8-10.2); POTASSIUM 2.7 mmol/L (3.5-5.1); TOTAL BILIRUBIN 0.2 mg/dL (0.20-1.00); TOTAL PROTEIN 4.3 g/dL (6.3-8.3)
[2016-07-23 07:51] LABS: EOS 2 % (1-10); LYMPHS 6 % (21-51); MONO 6 % (1-9)
[2016-07-23] MEDS ORDERED: KLOR-CON PO ONE (09:08)
[2016-07-23] MEDS: MIRALAX PO SCH ×3 (09:09→23:42)
[2016-07-23] MEDS: FOLIC ACID PO SCH (09:09)
[2016-07-23] MEDS: PREDNISONE PO SCH (09:09)
--- NOTE | 2016-07-23 09:52 | Diag Imaging Result Document ---
PROCEDURE NAME: CHEST-2 VIEWS - 07/23/2016 CHEST X-RAY 2 VIEWS, 07/23/2016: COMPARISON: 07/20/2016. FINDINGS: Stable left PICC line. Stable cardiomegaly. There is some ill-defined infiltrate in the posterior costophrenic angle on the lateral view. This is present in both lower lobes on the CT from 07/20/2016. Otherwise, no new infiltrates. IMPRESSION: No change from prior.
[2016-07-23] MEDS: MERREM 500 MG in NS 50 ML IV SCH ×2 (12:42→23:41)
--- NOTE | 2016-07-23 16:05 | PROGRESS NOTE ---
DATE: 07/23/2016 SUBJECTIVE: The patient states that she feels stronger today and is wondering when she can go home. She did have some coughing when she was receiving her bronchodilator treatment this morning, but otherwise states that she feels a whole lot better. OBJECTIVE: Vital Signs: Temperature 98 degrees, blood pressure 126/60, heart rate 113, respirations 21, O2 saturations 98% on 2 L nasal cannula. General: This is an elderly female, lying in bed, in no acute distress. Head: Normocephalic, atraumatic. Heart: S1, S2 normal. Tachycardic. Lungs: Mild expiratory wheezes with coarse breath sounds. Abdomen: Positive bowel sounds. Soft, obese, nontender, nondistended. Extremities: No edema. No cyanosis. No calf tenderness. Neurologic: The patient is alert and oriented x3. The patient is hard of hearing. LABS: White blood cell count 19, hemoglobin 9, hematocrit 29, platelets 68,000. Sodium 139, potassium 2.7, chloride 99, CO2 29, BUN 22, creatinine 1.4. Glucose 101. AST 8, ALT 6, alkaline phosphatase 185, albumin 2.3. ASSESSMENT AND PLAN: 1. Asthma exacerbation. We will continue on prednisone plus antibiotic therapy. The patient appears to be improving and from a clinical standpoint. Pulmonary is following. 2. Acute kidney injury on chronic kidney disease. Improved. Will discontinue the IV fluid at this time. 3. Leukocytosis. Improved. Continue on antibiotic therapy. 4. Metastatic gastric carcinoma, status post chemotherapy. Management as per the oncologist. 5. Morbid obesity, aware. 6. Thrombocytopenia. The patient's platelet count is a little bit lower today. We will monitor this closely. 7. Anemia. The patient's hemoglobin and hematocrit have dropped since yesterday. However, this may be hemo dilutional. We will continue to monitor this as well. DISPOSITION: We will plan to discharge the patient home once cleared by the film historian.
[2016-07-23] MEDS: LEVAQUIN 500 MG/D5W 100 ML IV SCH (17:17)
[2016-07-23] MEDS: PROTONIX IV SCH (17:25)
[2016-07-23] MEDS: DULCOLAX PR SCH (23:42)
[2016-07-24] MEDS: DUONEB (A & A) INH SCH ×2 (03:50→08:52)
[2016-07-24 07:17] LABS: BASO% 0.9 % (0.0-0.8); EOS# 0.01 X1000 (0.0-0.7); HEMATOCRIT 31.7 % (37.0-47.0); HEMOGLOBIN 9.7 g/dL (12.0-16.0); IMM GRAN# 1.57 X1000 (0.0-0.04); IMM GRAN% 7.3 % (0.0-0.5); LYMPH# 0.71 X1000 (1.2-3.4); LYMPH% 3.3 % (20.5-51.1); MANUAL DIFF NEEDED? YES; MCH 26.2 PG (27-31); MCHC 30.6 g/dL (33-37); MCV 85.7 FL (81-99); MONO# 1.87 X1000 (0.11-0.59); MONO% 8.7 % (1.7-9.3); NEUT% 79.8 % (42.2-75.2); PLT 97 X1000 (130-400)
[2016-07-24 07:45] LABS: BANDS 2 % (0-1); LYMPHS 2 % (21-51); MONO 6 % (1-9)
[2016-07-24 08:02] VITALS: BP 100/63
[2016-07-24 08:06] LABS: ALBUMIN 2.7 g/dL (3.5-5.0); CALCIUM 7.6 mg/dL (8.8-10.2); POTASSIUM 3.6 mmol/L (3.5-5.1); TOTAL BILIRUBIN 0.22 mg/dL (0.20-1.00); TOTAL PROTEIN 4.6 g/dL (6.3-8.3)
[2016-07-24] MEDS: MUCOMYST 20% INH SCH (08:52)
[2016-07-24] MEDS: MIRALAX PO SCH (10:03)
[2016-07-24] MEDS: FOLIC ACID PO SCH (10:06)
[2016-07-24] MEDS: PREDNISONE PO SCH (10:06)
[2016-07-24] MEDS ORDERED: VANCOMYCIN 1,250 MG in NS 250 ML IV SCH (13:00)
--- NOTE | 2016-08-03 07:36 | DISCHARGE SUMMARY ---
ADMISSION DATE: 07/20/2016 DISCHARGE DATE: 07/24/2016 FINAL DISCHARGE DIAGNOSES: 1. Acute asthma exacerbation. 2. Acute kidney injury on chronic kidney disease. 3. Leukocytosis. 4. Metastatic gastric carcinoma, status post chemotherapy. 5. Morbid obesity. 6. Thrombocytopenia. 7. Anemia of chronic disease. CONSULTATIONS REQUESTED DURING THIS HOSPITAL STAY: 1. Pulmonary consultation with Ricardo Whyte MD 2. Oncology consultation with Bang Gonzalez MD HOSPITAL COURSE: Ms. Moura is a 81-year-old female, with a history of recently diagnosed metastatic gastric carcinoma, who presented to the ER with generalized weakness and shortness of breath. Upon arrival to the emergency room a CT of the chest, abdomen, and pelvis was done that revealed basal atelectasis and bronchiectasis, but no evidence of pneumonia. The patient was admitted to the hospitalist service and started on IV steroids, bronchodilator therapy, IV antibiotics, and supplemental oxygen. The patient was noted to have acute kidney injury and was treated with IV fluid hydration. Pulmonary, as well as Oncology were consulted for further assistance. Slowly over the course of the hospitalization, the patient's respiratory status improved and her steroids were weaned down to prednisone. The patient was also seen by Physical therapy and did well with ambulation. The patient continued to improve clinically and was cleared for discharge home. DISCHARGE MEDICATIONS: 1. Lasix 20 mg p.o. daily p.r.n. 2. Levaquin 500 mg p.o. daily x5 days. 3. Prednisone taper, use as directed. 4. Breo one inhalation daily. 5. Albuterol 8.5 g inhaled every 4 hours p.r.n. for shortness of breath. 6. Folic acid 1 mg p.o. daily. 7. [place] 5/325, half a tablet oral every 4 hours p.r.n. for pain. DISCHARGE DIET: Regular diet. ACTIVITY: As tolerated. FOLLOWUP INSTRUCTIONS: The patient may need to follow up with Dr. Gonzalez as scheduled by his clinic. The patient will also need to follow up with Dr. Whyte as scheduled by his clinic.
== END 2016-07-24 11:20 | disposition home health service (06) | DRG 191 ==
LOC: ED 15:31 → SUPCPDRO 15:31 → EDIPHOLD 19:51 → 3N 07-21 00:03
PROVIDERS: ATTEND Internal Medicine
DX: J44.1 Chronic obstructive pulmonary disease with (acute) exacerbation (principal); N17.9 Acute kidney failure, unspecified; C79.9 Secondary malignant neoplasm of unspecified site; D69.6 Thrombocytopenia, unspecified; C16.9 Malignant neoplasm of stomach, unspecified; E86.0 Dehydration; E66.01 Morbid (severe) obesity due to excess calories; J45.901 Unspecified asthma with (acute) exacerbation; D63.8 Anemia in other chronic diseases classified elsewhere; N18.9 Chronic kidney disease, unspecified; M35.3 Polymyalgia rheumatica; J20.9 Acute bronchitis, unspecified; Z68.31 Body mass index [BMI] 31.0-31.9, adult; Z79.52 Long term (current) use of systemic steroids; Z79.899 Other long term (current) drug therapy; Z79.51 Long term (current) use of inhaled steroids; L40.9 Psoriasis, unspecified
CPT/HCPCS: 71010; 71020; 71250; 74176; 80053; 80069; 81001; 82140; 82550; 82570; 82805; 83735; 83880; 83935; 84156; 84300; 84439; 84443; 84484; 84540; 85025; 85379; 85610; 85730; 87040; 87070; 87077; 87088; 87186; 87205; 89220; 93005; 93010; 93306; 94640; 94761; 96365; 96366; 96367; 96375; C9113; J1170; J1940; J2185; J2405; J2920; J3370; J3480; J7030; J7050; J7512; 97116-GP; 97530-GP; S0164

== ENCOUNTER 2016-07-31 12:14 | Inpatient (IN) ==
--- NOTE | 2016-07-31 13:36 | ED EKG INTERP ---
EKG Interpretation - EKG Time of EKG reading by physician:: 13:04 EKG Read and Signed by:: Aicha Huang EKG Interpretation (*Must complete 3 of following elements*): Abnormal Rate: 98 (left axis devitation; possible lateral infarct, age undetermined ) Rhythm: atrial fibrillation Attestation - Scribe Verification/Attestation Scribe:: Marilou Earl Acting as Scribe for:: Aicha Huang Scribe documention review:: This chart was documented by a scribe and accurately reflects the service the provider performed and the decisions made by the provider.
[2016-07-31] MEDS ORDERED: CARDIZEM IV ONE (13:37)
[2016-07-31 13:42] LABS: BASO% 0.2 % (0.0-0.8); EOS# 0.02 X1000 (0.0-0.7); EOS% 0.1 % (0.0-10.0); HEMATOCRIT 30.5 % (37.0-47.0); HEMOGLOBIN 9.5 g/dL (12.0-16.0); LYMPH# 0.48 X1000 (1.2-3.4); MANUAL DIFF NEEDED? NO; MCH 27.6 PG (27-31); MCHC 31.1 g/dL (33-37); MCV 88.7 FL (81-99); MONO# 1.16 X1000 (0.11-0.59); MONO% 7.2 % (1.7-9.3); NEUT% 89.5 % (42.2-75.2); PLT 73 X1000 (130-400); RBC 3.44 XMIL (4.2-5.4)
--- NOTE | 2016-07-31 13:44 | Diag Imaging Result Document ---
PROCEDURE NAME: CHEST-2 VIEWS - 07/31/2016 CHEST X-RAY, 2 VIEWS: COMPARISON: 07/29/2016. FINDINGS: Stable left PICC line in good position. There are trace pleural effusions. Stable severely low lung volumes. Heart size remains grossly normal. IMPRESSION: Trace pleural effusions, nonspecific.
--- NOTE | 2016-07-31 13:45 | PROVIDER DOCUMENTATION ---
HPI-General Adult - General Chief Complaint: Shortness of Breath Stated Complaint: Difficulty Breathing Time Seen by Provider: 07/31/16 13:00 Source: patient, family Allergies/Adverse Reactions: Patient Allergies Allergy/AdvReac Type Severity Reaction Status Date / Time aspirin Allergy SHORTNESS Verified 07/31/16 15:18 OF BREATH Penicillins Allergy ANAPHYLAXIS Verified 07/31/16 15:18 Home Medications: Home Medication List Medication Instructions Recorded Confirmed Last Taken Type Albuterol Sulfate [Albuterol 8.5 gm IH DIRECTED 02/02/15 07/31/16 07/31/16 History Sulfate Hfa] Folic Acid 1 mg PO DAILY 02/02/15 07/31/16 07/31/16 History Prednisone 2.5 mg PO QAM 02/02/15 07/31/16 07/31/16 History Hydrocodone/Acetaminophen [Darrow 0.5 tab PO PRN PRN 07/20/16 07/31/16 1 Day Ago History 5-325 Tablet] Fluticasone/Vilanterol [Breo 1 each IH DAILY #1 blst.w.dev 07/24/16 07/31/16 Rx Ellipta 200-25 Mcg INH] Furosemide [Lasix] 20 mg PO DAILY PRN #0 07/24/16 07/31/16 1 Day Ago Rx Levofloxacin [Levaquin] 500 mg PO DAILY #5 tablet 07/24/16 07/31/16 2 Days Ago Rx Benzonatate [Tessalon Perle] 100 mg PO TID PRN 07/31/16 07/31/16 1 Day Ago History Prednisone 2.5 mg PO DIRECTED 07/31/16 07/31/16 07/31/16 History - History of Present Illness -Gen Adult Nature of Presenting Problems: 81 y/o WF currently being treated for gastric cancer with chemotherapy, sent from Dr. Gonzalez (oncologist) office for sob. States had cxr 2 days ago, no pneumonia. She was supposed to received chemo Wednesday, but she was feeling sob with a wbc of 26, so they gave IV antibiotics instead. Patient's family not sure what was given. She is on several chemo medications, one with a pump she goes home on from to Wednesday. No history of cardiac disease, no currently on any blood thinners, no known hx of AFib. She does take breathing treatments 4 x a day at home, and has 3-4 pillow orthopnea. Has been on steroids daily due to recent hospitalization for acute bronchitis. Current chemo is 5-FU/leucorvorin/oxaliplatin every 2 weeks. She is on Nuel[place] as well , however the increase in WBC occurred 2 weeks after the injection, and was stated to not be related by the Mid-level and [facility]. SOb has been increasing over the past week, with a productive cough. Family denies any fevers. Called [facility], She was given Invanz 1 g IV today, and could not get the oxygen saturation above 89%. Review of Systems - Adult - REVIEW OF SYSTEMS - ADULT Constitutional: reports: see HPI, fatique. denies: chills, fever Eyes: reports: no symptoms reported. denies: blurred vision, double vision, eye pain Ears, Nose, Mouth & Throat: reports: no symptoms reported. denies: ear pain, nose pain, throat pain Cardiovascular: reports: see HPI, irregular heart rate. denies: chest pain, palpitations Respiratory: reports: see HPI, cough, shortness of breath, wheezing Gastrointestinal: reports: no symptoms reported. denies: abdominal pain, diarrhea, nausea, vomiting Genitourinary: reports: no symptoms reported. denies: dysuria, discharge, frequency Musculoskeletal: reports: no symptoms reported. denies: bone pain, back pain, muscle aches Integumentary: reports: no symptoms reported Neurological: reports: no symptoms reported. denies: headache/migraines Psychiatric: reports: no symptoms reported Endocrine: reports: no symptoms reported Hematologic/Lymphatic: reports: no symptoms reported Allergic/Immunologic: reports: no symptoms reported All Other Systems: Reviewed and Negative Past History - Adult - PAST MEDICAL HISTORY-ADULT Review of Records: reports: Old Records Reviewed, Nursing Assessment Review, Medications Reviewed Major Childhood Illnesses: reports: denies history Cardiovascular: reports: denies history Respiratory: reports: asthma, COPD Gastrointestinal: reports: cancer (stomach) Obstetrical/Gynecological: reports: denies history Genitourinary: reports: denies history Musculoskeletal: reports: fibromyalgia Neurological: reports: denies history Endocrine/Immune: reports: thyroid disorder Other Conditions: reports: denies history - PRIOR SURGERIES/PROCEDURES Surgical/Procedure History: reports: cholecystectomy, indwelling device - IMMUNIZATION STATUS Childhood Immunizations: See Nurse Assessment Flu Vaccine: See Nurse Assessment - FAMILY HISTORY Family History: reviewed, not pertinent Physical Exam-General - PHYSICAL EXAM-ADULT Initial Vital Signs Reviewed: Yes - CONSTITUTIONAL General Appearance: appears well, alert, mild distress - EYES Eyes: PERRL/EOMI, pink conjunctivae - HEAD, EARS, NOSE, MOUTH & THROAT HENMT: normocephalic/atraumatic, moist mucous membranes, normal ENT inspection - NECK Neck: non-tender, full range of motion, supple, normal inspection. negative: lymphadenopathy - RESPIRATORY Respiratory: chest non-tender, no pleuratic chest pain, no respiratory distress , no accessory muscle use, rhonchi, wheezing. negative: accessory muscle use, crackles, rales - CARDIOVASCULAR Cardiovascular: normal peripheral pulses, regular rate, rhythm - MUSCULOSKELETAL Extremity: normal range of motion, pedal edema (2_ pitting) - SKIN Integumentary: normal color, normal turgor, warm/dry - NEUROLOGIC Neurologic: grossly normal, no motor/sensory deficits - PSYCHIATRIC Psych/Mental Status: normal mood/affect, normal thought content, normal thought process, oriented x 3 Progress - PLAN OF CARE/RESULTS Progress/Plan/Lab Results: Vital Signs Temp Pulse Pulse Pulse Pulse Resp BP 07/31/16 15:39 98 H 16 104/62 07/31/16 15:16 87 24 106/59 07/31/16 14:27 90 24 97/59 07/31/16 14:07 102 H 24 100/60 07/31/16 13:58 48 L 18 07/31/16 13:46 108 H 123 H 90 07/31/16 12:43 98.5 F 42 L 36 H 92/56 BP BP BP Pulse Ox 07/31/16 15:39 97 07/31/16 15:16 97 07/31/16 14:27 98 07/31/16 14:07 96 07/31/16 13:58 99 07/31/16 13:46 94/72 95/70 90/64 07/31/16 12:43 99 aspirin Allergy (Verified 07/31/16 15:18) SHORTNESS OF BREATH Penicillins Allergy (Verified 07/31/16 15:18) ANAPHYLAXIS Albuterol Sulfate [Albuterol Sulfate Hfa] 8.5 gm IH DIRECTED 02/02/15 Folic Acid 1 mg PO DAILY 02/02/15 Prednisone 2.5 mg PO QAM 02/02/15 Hydrocodone/Acetaminophen [Darrow 5-325 Tablet] 0.5 tab PO PRN PRN 07/20/16 Fluticasone/Vilanterol [Breo Ellipta 200-25 Mcg INH] 1 each IH DAILY #1 blst.w.dev 07/24/16 Furosemide [Lasix] 20 mg PO DAILY PRN #0 07/24/16 Levofloxacin [Levaquin] 500 mg PO DAILY #5 tablet 07/24/16 Benzonatate [Tessalon Perle] 100 mg PO TID PRN 07/31/16 Prednisone 2.5 mg PO DIRECTED 07/31/16 Laboratory 07/31/16 07/31/16 07/31/16 13:17 13:17 13:17 WBC RBC Hgb Hct MCV MCH MCHC RDW Std Deviation Plt Count MPV Neut % (Auto) Lymph % (Auto) [place] % (Auto) Eos % (Auto) Baso % (Auto) Neut # (Auto) Lymph # (Auto) [place] # (Auto) Eos # (Auto) Baso # (Auto) PT INR PTT (Actin FS) D-Dimer 2.76 H Sodium Potassium Chloride Carbon Dioxide Anion Gap BUN Creatinine Estimated GFR/1.73 m2 BUN/Creatinine Ratio Glucose Calculated Osmolality Calcium Magnesium Total Bilirubin AST ALT Alkaline Phosphatase Creatine Kinase Troponin T 0.012 Tpn-S-Ympnbckwzxm Pept 1403 H Total Protein Albumin Globulin Albumin/Globulin Ratio 07/31/16 07/31/16 07/31/16 13:17 13:17 13:17 WBC 16.22 H RBC 3.44 L Hgb 9.5 L Hct 30.5 L MCV 88.7 MCH 27.6 MCHC 31.1 L RDW Std Deviation 22.8 H Plt Count 73 L MPV 10.0 Neut % (Auto) 89.5 H Lymph % (Auto) 3.0 L [place] % (Auto) 7.2 Eos % (Auto) 0.1 Baso % (Auto) 0.2 Neut # (Auto) 14.52 H Lymph # (Auto) 0.48 L [place] # (Auto) 1.16 H Eos # (Auto) 0.02 Baso # (Auto) 0.04 PT 11.3 INR 1.07 PTT (Actin FS) D-Dimer Sodium 136 Potassium 3.0 L Chloride 93 L Carbon Dioxide 29 Anion Gap 14 BUN 21 Creatinine 1.4 H Estimated GFR/1.73 m2 36 BUN/Creatinine Ratio 15 Glucose 92 Calculated Osmolality 275 Calcium 7.4 L Magnesium 1.5 Total Bilirubin 0.35 AST 12 ALT 9 L Alkaline Phosphatase 199 H Creatine Kinase 33 Troponin T Ekx-W-Jbccntrsetd Pept Total Protein 4.4 L Albumin 2.6 L Globulin 1.8 Albumin/Globulin Ratio 1.4 07/31/16 13:17 WBC RBC Hgb Hct MCV MCH MCHC RDW Std Deviation Plt Count MPV Neut % (Auto) Lymph % (Auto) [place] % (Auto) Eos % (Auto) Baso % (Auto) Neut # (Auto) Lymph # (Auto) [place] # (Auto) Eos # (Auto) Baso # (Auto) PT INR PTT (Actin FS) 28.0 D-Dimer Sodium Potassium Chloride Carbon Dioxide Anion Gap BUN Creatinine Estimated GFR/1.73 m2 BUN/Creatinine Ratio Glucose Calculated Osmolality Calcium Magnesium Total Bilirubin AST ALT Alkaline Phosphatase Creatine Kinase Troponin T Ijb-H-Sgclrisezgi Pept Total Protein Albumin Globulin Albumin/Globulin Ratio Orders Category Date Time Status Cardiac Monitoring DIRECTED Care 07/31/16 13:00 Active DNR [Resuscitation Status] Routine Care 07/31/16 14:37 Ordered ED: Orthostatic Vital Signs (E as directed Care 07/31/16 13:00 Active CHEST-2 VIEWS [RAD] Stat Exams 07/31/16 13:00 Completed BNP [PRO B-NATRIURETIC PEPTIDE] Stat Lab 07/31/16 13:17 Completed CBC WITH ELECTRONIC DIFF [HEME] Stat Lab 07/31/16 13:17 Completed CK PROFILE [SP CHEM] Stat Lab 07/31/16 13:17 Completed COMPREHENSIVE METABOLIC PANEL [CHEM] Stat Lab 07/31/16 13:17 Completed D-DIMER [CHEM] Stat Lab 07/31/16 13:17 Completed MAGNESIUM [CHEM] Stat Lab 07/31/16 13:17 Completed PROTIME WITH INR [COAG] Stat Lab 07/31/16 13:17 Completed PTT [COAG] Stat Lab 07/31/16 13:17 Completed TROPONIN T Stat Lab 07/31/16 13:17 Completed 0.9% Sodium Chloride Inj [Ns] 1,000 ml Med 07/31/16 13:46 Active IV 200 mls/hr Albuterol 2.5MG/Ipratrop 0.5MG [Duoneb (A & A)] Med 07/31/16 13:46 Discontinued 3 ml INH NOW ONE Diltiazem [Cardizem] Med 07/31/16 13:37 Discontinued 10 mg IV NOW ONE Potassium Chloride 10 meq Med 07/31/16 16:00 Active 0.9% Sodium Chloride Inj [Ns] 100 ml IV Q2H Potassium Chloride E.r. [Klor-Con] Med 07/31/16 14:27 Discontinued 40 meq PO NOW ONE Aerosol Treatments Routine Oth 07/31/16 13:46 Completed Aerosol Treatments Stat Oth 07/31/16 13:46 Completed EKG [EKG] Stat Ther 07/31/16 12:53 Draft - XRAY 1 XRAY: Bilateral XRAY Study: Chest Impression: Abnormal (trace pleural effusions, non-specific. per Dr. Mujica) - CONSULTS/PCP/HOSPITALIST Notification #1 *Consult/PCP/[facility]ospitalist*: [facility] Time Discussed: 14:52 Reason/Comments: dyspnea Consult Disposition: Admit Departure - Departure Time of Disposition Order: 14:48 DIAGNOSIS: Generalized weakness, Shortness of breath, New onset a-fib Dyspnea Qualifiers: Dyspnea type: dyspnea on exertion Qualified Code(s): R06.09 - Other forms of dyspnea Stomach cancer Qualifiers: Malignant neoplasm of stomach location: unspecified location Qualified Code(s) : C16.9 - Malignant neoplasm of stomach, unspecified Disposition: ADMITTED INPATIENT 09 Certified Medical Emergency: Emergent Condition: Stable Referrals: Bang Gonzalez MD [Primary Care Provider] - Attestation - Physician/ SRIRAM Attestation Patient care was provided by Advanced Practice Provider:: Yes Advanced Practice Provider:: Ruby Noland Advanced Practice Provider documentation review:: The Mid-level provider documentation, treatment plan and medical decision making was reviewed by the physician who agrees with all treatment and medical decision making by the MLP.
[2016-07-31] MEDS ORDERED: DUONEB (A & A) INH ONE (13:46)
[2016-07-31] MEDS ORDERED: NS 1,000 ML IV ONE (13:46)
--- NOTE | 2016-07-31 13:49 | EKG Report ---
Test Performed on : 07/31/2016 1:04:17 PM Test Reason : sob Blood Pressure : / mmHG Vent. Rate : 098 BPM Atrial Rate : 085 BPM P-R Int : 000 ms QRS Dur : 098 ms QT Int : 328 ms P-R-T Axes : 000 -37 039 degrees QTc Int : 418 ms Atrial fibrillation. Left axis deviation Possible Lateral infarct , age undetermined Abnormal ECG When compared with ECG of 21-JUL-2016 06:09, Atrial fibrillation. has replaced Sinus rhythm. Criteria for Septal infarct are no longer present Unconfirmed Result
[2016-07-31 13:56] LABS: ALBUMIN 2.6 g/dL (3.5-5.0); CALCIUM 7.4 mg/dL (8.8-10.2); INR 1.07; MAGNESIUM 1.5 mg/dL (1.5-2.7); PROTIME 11.3 Seconds (9.2-11.7); TOTAL BILIRUBIN 0.35 mg/dL (0.20-1.00); TOTAL PROTEIN 4.4 g/dL (6.3-8.3)
[2016-07-31] MEDS ORDERED: KLOR-CON PO ONE (14:27)
[2016-07-31] MEDS: NS IV SCH ×3 (15:47→18:00)
[2016-07-31] MEDS: POTASSIUM CHLORIDE IV SCH ×3 (15:47→18:00)
[2016-07-31] MEDS ORDERED: VANCOMYCIN IV PER PHARMACY MISC SCH (16:45)
[2016-07-31] MEDS ORDERED: AZACTAM 1 GM in NS 50 ML IV SCH (16:45)
[2016-07-31] MEDS ORDERED: AZACTAM 1 GM in NS 50 ML IV ONE (17:00)
--- NOTE | 2016-07-31 18:24 | HISTORY AND PHYSICAL ---
PRIMARY CARE PROVIDER: Reno Cary M.D. ONCOLOGY: Bang Gonzalez M.D. PULMONOLOGY: Ricardo Whyte M.D. GASTROENTEROLOGY: Valdo Mehta M.D. CHIEF COMPLAINT: Apparently she has had desaturation and was sent here from Dr. Gonzalez's office secondary to inability to get O2 saturations up. HISTORY OF PRESENT ILLNESS: Ms. Moura is a 81-year-old, female who has been recently diagnosed with metastatic gastric cancer. She has a history of COPD and bronchial asthma. Apparently she has had pulmonary problems since the day she was warm and never has been a smoker. She had gone on Wednesday for blood work and her second dose of chemotherapy which she has not received. They found her white count to be 26,000 and when she came into the office today she was found to have a lower saturation that had a difficult time getting up. She does not use oxygen at home. Upon workup it was found that she was in atrial fibrillation with a rate of 102 when she first got here. She did receive a dose of diltiazem 10 mg x1. Her potassium was 3.0 so she is receiving potassium supplementation. Her white count here was 16,000 although the chest x-ray does not show any signs of pneumonia. It only shows trace pleural effusions. She was placed on 3 L nasal cannula and her O2 saturations increased to 96-98%. Her blood pressure runs in the 90s but the family states that her normal blood pressure is 90s over 60s. This is not abnormal for her that only occasionally she will get up to 100 systolic. Her abdomen is tender in all 4 quadrants but she feels like this is due to her cancer. She has recently started having pretty bad reflux with lots of belching and also with difficulty getting food down when she swallows. She is short of breath with a productive cough but they feel this is not an abnormal color. They actually feel that it looks like gastric contents. Further evaluation revealed that she does have a right lower extremity cellulitis. It is red and warm to touch but she was afebrile on admit and white count was 16,000. We will go ahead and admit her to a private medical floor. She is still receiving chemotherapy. She had one treatment. She is supposed to receive another one shortly. We will consult Dr. Gonzalez for that. PAST MEDICAL HISTORY: 1. Metastatic gastric carcinoma. 2. Bronchial asthma since a child. 3. COPD but never smoked. 4. Morbid obesity. 5. Polymyalgia rheumatica. 6. Psoriasis. PAST SURGICAL HISTORY: Cholecystectomy, right chest fatty tumor removed. SOCIAL HISTORY: She lives alone but for the last month family has stayed with her. She is a nonsmoker. She does not use alcohol or illicit drugs. FAMILY HISTORY: Negative. ALLERGIES: Aspirin and penicillin. Penicillin causes anaphylaxis. HOME MEDICATIONS: Albuterol sulfate inhaled, folic acid 1 mg p.o. daily, prednisone 2 5 mg p.o. daily, [place] 5 one-half tablet p.o. as needed, Tessalon Perles 100 mg p.o. 3 times a day as needed, prednisone 2.5 mg, Lasix 20 mg p.o. daily, Breo Ellipta inhaled daily. REVIEW OF SYSTEMS: Fourteen point review of systems were complete and all were negative except for those mentioned in above HPI. LABORATORY DATA: White blood cells 16,000, hemoglobin 9, hematocrit 30, platelet count 73,000. D- dimer 2.76. PTT is 28. Sodium 136, potassium 3.0, BUN 29, creatinine 1.4, glucose 92, calcium 7.4, magnesium 1.5. Total bilirubin 0.35, AST 12, ALT 9, CK 33, troponin 0.012 , proBNP 1403, albumin 2.6. IMAGING: EKG: Atrial fibrillation 98. Chest x-ray: Trace pleural effusions. PICC line in good position. Low lung volumes. Otherwise stable. PHYSICAL EXAMINATION: VITAL SIGNS: Temperature 98.5 degrees, heart rate 98, respiratory rate 16, blood pressure 104/62, O2 saturation 97% on 3 L nasal cannula. GENERAL: Ms. Moura is a 81-year-old, female. She has some mild discomfort with breathing but is in no distress. She is able to answer some questions appropriately. HEENT: Atraumatic, normocephalic. Pupils equal, round, reactive to light. Extraocular movements intact. Mucous membranes are dry. NECK: No JVD or carotid bruits noted. CARDIOVASCULAR: Irregularly irregular rate and rhythm. No rubs, gallops, murmurs. PULMONARY: Coarse bilaterally anterior and posteriorly. Currently on 3 L nasal cannula. No work of breathing but some mild accessory muscle use. GASTROENTEROLOGY: Soft but tender in all 4 quadrants. Positive bowel sounds x4. EXTREMITIES: Right lower extremity and left posterior heel/ankle area/lower calf appears to have cellulitis around the right lower extremity and the posterior part of the left lower extremity. Red on the left but not warm. On the right it is red and warm. No open wounds. She has +1 to +2 lower extremity edema. She has +2 dorsalis pedal pulses and +2 radial pulses. She moves all extremities. She uses a walker to get around at home. Just generalized weakness. NEUROLOGIC: Oriented. Follows commands. ASSESSMENT AND PLAN: 1. Acute hypoxemic respiratory failure, COPD exacerbation. We will do IV steroids. She normally takes p.o. steroids. We will do inhaled nebulizers. Chest x-ray does not reveal any pneumonia. There are some small pleural effusions. We will do acetylcysteine to help her cough up anything that could be productive and consult Dr. Whyte as he follows her outpatient. 2. New onset atrial fibrillation. Rate is controlled. She did receive 1 dose of Cardizem. We will consult Cardiology. Replace her potassium as it is low. Repeat EKG in the morning. 3. D-dimer elevated. We will rule out lower extremity DVTs with ultrasound. 4. Right lower extremity cellulitis. She will be on broad-spectrum antibiotics. 5. Leukocytosis. It is unknown if it is secondary to chronic steroid use or if there really is something pulmonary going on or the cellulitis is in her leg. Again she will be with antibiotic therapy. 6. Complaints of swallowing difficulties, severe reflux. We will consult GI for any recommendations. We will do soft foods. 7. Metastatic gastric carcinoma. She has received 1 treatment of chemotherapy so far. She is supposed to be scheduled for another treatment this week and Dr. Gonzalez has been reconsulted. 8. Hypokalemia. We will replace potassium and magnesium. Although the magnesium is normal, it is on the lower end of normal and she is in atrial fibrillation so we will replace that also. 9. Chronic anemia. Stable. 10. Thrombocytopenia is stable. No signs of bleeding. Denies melena. 11. Deep venous thrombosis prophylaxis. SCDs. 12. Gastrointestinal prophylaxis. Proton pump inhibitor. Dictated by JIGNESH Donato for Vito Laurent MD [facility]
[2016-07-31] MEDS: NS 1,000 ML IV SCH (18:35)
[2016-07-31] MEDS: SOLU-MEDROL IV SCH (18:42)
[2016-07-31] MEDS ORDERED: VANCOMYCIN 1,750 MG in NS 250 ML IV ONE (20:00)
[2016-07-31] MEDS: DUONEB (A & A) INH SCH ×2 (20:32→23:11)
[2016-07-31] MEDS: MUCOMYST 20% INH SCH (20:32)
[2016-07-31] MEDS: PULMICORT INH SCH (20:32)
[2016-07-31] MEDS: SODIUM CHLORIDE 0.9% INJ SCH (23:41)
[2016-07-31] MEDS: PROTONIX IV SCH (23:41)
[2016-07-31] MEDS: PERICOLACE PO SCH (23:43)
[2016-08-01] MEDS ORDERED: AZACTAM 1 GM in NS 50 ML IV SCH (01:00)
[2016-08-01] MEDS: SOLU-MEDROL IV SCH ×3 (01:37→20:40)
[2016-08-01] MEDS: AZACTAM 1 GM in NS 50 ML IV SCH ×3 (01:38→18:05)
[2016-08-01] MEDS: DUONEB (A & A) INH SCH ×6 (03:11→23:44)
[2016-08-01] MEDS: CARAFATE LIQUID PO SCH ×4 (03:24→20:39)
[2016-08-01] MEDS: NS 1,000 ML IV SCH ×2 (03:24→07:48)
[2016-08-01] MEDS: TESSALON PO PRN (03:25)
[2016-08-01 07:15] LABS: BASO% 0.2 % (0.0-0.8); HEMATOCRIT 28.3 % (37.0-47.0); HEMOGLOBIN 8.8 g/dL (12.0-16.0); IMM GRAN# 0.58 X1000 (0.0-0.04); IMM GRAN% 4.4 % (0.0-0.5); LYMPH# 0.19 X1000 (1.2-3.4); LYMPH% 1.4 % (20.5-51.1); MANUAL DIFF NEEDED? YES; MCH 27.5 PG (27-31); MCHC 31.1 g/dL (33-37); MCV 88.4 FL (81-99); MONO# 0.18 X1000 (0.11-0.59); MONO% 1.4 % (1.7-9.3); MPV 10.2 FL (7.4-10.4); NEUT% 92.6 % (42.2-75.2); PLT 69 X1000 (130-400)
[2016-08-01] MEDS: PULMICORT INH SCH ×2 (07:30→20:35)
[2016-08-01] MEDS: MUCOMYST 20% INH SCH ×2 (07:30→20:34)
[2016-08-01 07:35] LABS: BANDS 10 % (0-1); LYMPHS 2 % (21-51); MONO 2 % (1-9)
[2016-08-01 07:38] LABS: ALBUMIN 2.3 g/dL (3.5-5.0); CALCIUM 7.1 mg/dL (8.8-10.2); POTASSIUM 3.2 mmol/L (3.5-5.1); TOTAL BILIRUBIN 0.32 mg/dL (0.20-1.00); TOTAL PROTEIN 4.2 g/dL (6.3-8.3)
[2016-08-01] MEDS: SODIUM CHLORIDE 0.9% INJ SCH ×2 (08:46→20:40)
[2016-08-01] MEDS: PERICOLACE PO SCH ×2 (08:46→20:40)
[2016-08-01] MEDS: FOLIC ACID PO SCH (08:46)
[2016-08-01] MEDS: PROTONIX IV SCH ×2 (08:46→20:40)
--- NOTE | 2016-08-01 15:11 | CONSULTATION ---
DATE OF CONSULTATION: 08/01/2016 REFERRING PHYSICIAN: Dr. Vito Laurent. CHIEF COMPLAINT: Low oxygen saturation. HISTORY OF PRESENT ILLNESS: This 81-year-old female with past medical history of metastatic gastric carcinoma, COPD, morbid obesity, polymyalgia rheumatica, and psoriasis presented to the hospital from the doctor's office with low oxygen saturations. She does complain of some abdominal tenderness and reflux and has some mild shortness of breath. She was also found to be in new onset atrial fibrillation, rate controlled. REVIEW OF SYSTEMS: A 10-point review of systems was conducted. Pertinent is noted in the HPI, otherwise, noncontributory. PAST MEDICAL HISTORY: As mentioned in HPI, otherwise, noncontributory. PAST SURGICAL HISTORY: Cholecystectomy. Right chest fatty tumor removed. SOCIAL HISTORY: The patient lives alone but does have some family members that intermittently stay with her. She is a nonsmoker and denies the use of alcohol or illicit drugs. FAMILY HISTORY: Noncontributory. ALLERGIES: Aspirin and penicillin. ACTIVE MEDICATIONS: 1. Mucomyst. 2. DuoNeb. 3. Aztreonam. 4. Tessalon. 5. Pulmicort. 6. Folic acid. 7. Solu-Medrol. 8. Vancomycin. 9. Zofran. 10. Protonix. 11. Natalya-Colace. 12. Carafate. PHYSICAL EXAMINATION: Vital Signs: Temperature 97.4, heart rate 99, respiratory rate 16, blood pressure 87/55, oxygen saturation 100%. General: Awake, alert. No acute distress noted. HEENT: Normocephalic and atraumatic. PERRL. Cardiovascular: Irregular rate. No murmurs, rubs, or gallops appreciated. Chest: Reduced entry. Coarse breath sounds bilaterally. Abdomen: Soft, tender diffusely. Bowel sounds present. Extremities: Distal pulses palpable. Neurologic: Alert and oriented. LABORATORY AND INVESTIGATIONS: WBC 13.19, RBC 3.2, hemoglobin 8.8, hematocrit 28.3, platelet count 69,000. Sodium 139, potassium 3.3, chloride 99, carbon dioxide 25. Anion gap 15. BUN 21, creatinine 1.3. Glucose 133. Chest x-ray performed on 07/31/2016 shows trace pleural effusions, nonspecific. ASSESSMENT AND PLAN: This is a 81-year-old female with past medical history mentioned in the HPI who presented to the hospital with low oxygen saturations. For her acute hypoxic respiratory failure secondary to COPD exacerbation, SOB. she will receive IV steroids, inhaled bronchodilators, acetylcysteine. Also cardiology is following for new onset atrial fibrillation. Antibiotics for her leukocytosis. GI following for complaints of swallowing. Dr. Gonzalez following for metastatic gastric carcinoma and continue with GI prophylaxis and SCDs for DVT prophylaxis. Further recommendations pending diagnostic studies. Thank for the courtesy of this consult. Dictated by JIGNESH Santana for Arya Taylor MD [facility]
[2016-08-01] MEDS ORDERED: KLOR-CON POWDER PACKET PO ONE (15:15)
--- NOTE | 2016-08-01 16:29 | PROGRESS NOTE ---
DATE: 08/01/2016 SUBJECTIVE: The son is at the bedside. When I evaluated this patient this patient was sitting and eating. She states that she is doing much better and the son corroborated this information. She was not complaining about chest pain. She is still complaining of mild shortness of breath. She has dysphagia and she is eating just soft diet. She denies nausea, vomiting at this moment. OBJECTIVE: Vital Signs: Temperature 97.6 degrees, pulse 100, respiratory rate 18, blood pressure 108/66, oxygen saturation 100% on 2 L of nasal cannula. HEENT: Head normocephalic. No trauma. PERRLA. Neck: Supple. Mild JVD. Central trachea. Chest: Bilateral lower lung rales. No wheezing. Abdomen: Soft, mild tenderness to palpation in the epigastric area. No rebound. Extremities: Trace edema at the level of the lower extremities. Neurological: The patient is alert and oriented x3. No focal neurological deficits. LABORATORY: WBC 13.1, hemoglobin 8.8, hematocrit 28.3, platelets 69,000. Sodium 139, potassium 3.2, chloride 99, bicarbonate 25. BUN 21, creatinine 1.3, glucose 133, calcium 7.1, albumin 2.3. ASSESSMENT AND PLAN: 1. Acute hypoxemic respiratory failure likely secondary to chronic obstructive pulmonary disease exacerbation, this is getting better. I will decrease the dose of the intravenous steroids, she normally takes p.o. steroids. We will continue with the inhaled nebulizers. No evidence of pneumonia. 2. New onset atrial fibrillation. Today it looks like she is in sinus rhythm. We will continue to monitor. Cardiology has been consulted and the potassium has been replaced. 3. Hypokalemia. I will replace the potassium again. 4. D-dimer elevated. A venous ultrasound was already ordered to rule out any DVT, but this patient is not complaining about pain. 5. Right lower extremity cellulitis. We will continue with broad spectrum antibiotics. 6. Leukocytosis. Probably this is secondary to chronic steroid use and/or infection. We will continue with the antibiotics. 7. Dysphagia, GI has been consulted. Apparently Dr. Mehta is taking care of this patient as an outpatient. 8. Metastatic gastric carcinoma. Dr. Gonzalez has been reconsulted, he is taking care of this patient as an outpatient. 9. Thrombocytopenia stable. 10. Deep vein thrombosis prophylaxis, SCDs 11. Gastrointestinal prophylaxis. Will do PPI.
--- NOTE | 2016-08-01 17:02 | PROGRESS NOTE ---
DATE: 08/01/2016 PRIMARY MOISTURE METER READER: Dr. Mehta. SUBJECTIVE: Patient is resting in bed. She denies any nausea or vomiting or any vomiting blood. She was admitted with acute hypoxic respiratory failure, COPD exacerbation, new onset atrial fibrillation and electrolyte imbalance, leukocytosis. She has a known history of metastatic gastric cancer. She is currently receiving chemotherapy with Dr. Gonzalez. She received 1 cycle of chemotherapy so far. OBJECTIVE: Temperature of 97.6 degrees, pulse rate of 76, respiratory rate 18, blood pressure 108/66, saturating 95% on 2 L nasal cannula.General Appearance: Moderately nourished, lying in bed, in no acute distress. HEENT: Pale conjunctiva. No icterus. Neck: Supple. Abdomen: Obese, soft, nondistended, nontender. No guarding. No rebound. Extremities : No cyanosis, clubbing. Neurologic: She is alert, awake, oriented. LAB: Her hemoglobin and hematocrit is 8.8 and 28.2, white count of 13.1, platelet count of 69,000. INR 1.07. Sodium 139, potassium 3.2, chloride 99, bicarb 25, anion gap of 15, BUN of 21, creatinine 1.3, glucose of 130. Calcium is 7.1, total bilirubin is 0.32, AST 9 , ALT 7, alkaline phosphatase 167, total protein 4.2, albumin of 2.3. Meds reviewed IMPRESSION AND PLAN: Metastatic gastric cancer status post 1 cycle of chemotherapy with Dr. Gonzalez. Admitted with acute hypoxic respiratory failure, COPD exacerbation, new onset atrial fibrillation, electrolyte imbalance, leukocytosis and GI is consulted for worsening reflux disease and dysphagia. In this regard we will continue the patient on Protonix twice daily. We will also continue on Carafate 1 g every 6 hours. We will start on bowel regimen with Natalya-Colace 2 capsules p.o. b.i.d. We will continue monitor hemoglobin and hematocrit and electrolytes and replenish them per the primary team. She has been covered with broad-spectrum antibiotics, IV fluids and nebulizer treatments for COPD and asthma. We will follow along and Dr. Mehta will decide about any kind of endoscopic intervention based on her symptoms early next week. [facility]
--- NOTE | 2016-08-01 17:29 | CONSULTATION ---
DATE OF CONSULTATION: 08/01/2016 REASON FOR CONSULTATION: Cardiology was consulted for irregular heartbeat. HISTORY OF PRESENT ILLNESS: Ms. Elly Moura is a 81-year-old lady was recently diagnosed to have metastatic gastric cancer. She has history of COPD, bronchial asthma and is undergoing chemotherapy in Dr. Gonzalez's office. She was found to have a white count of 26,000 when she came to the office and was noted to have low saturations and irregular pulse. She was brought to the emergency room. She was noted to be in atrial fibrillation with a potassium of 3.0. Cardizem was given subsequently heart rhythm was normal. Chest x-ray shows trace pleural effusion. She is not known to have any cardiac issues. There is no previous cardiac history. She is undergoing chemotherapy in Dr. Gonzalez's office. REVIEW OF SYSTEMS: GI: There is no history of nausea, there is no history of hematemesis or melena currently. Central nervous system: No focal weakness to suggest a CVA, TIA. : There is no dysuria or hematuria. PAST MEDICAL HISTORY: 1. Metastatic gastric carcinoma. 2. Bronchial asthma. 3. COPD. 4. Obesity. 5. Polymyalgia rheumatica. 6. Psoriasis. 7. Cholecystectomy. ALLERGIES: She is allergic to aspirin and penicillin. Penicillin causes anaphylaxis. PHYSICAL EXAMINATION: Vital Signs: Blood pressure 104/62. Cardiovascular System: Normal jugular venous pressure. There no thyromegaly. No carotid bruit. First and second heart sounds were heard. There is no S3 gallop. Respiratory System: Normal air entry. There is no crepitations. There is scattered expiratory wheeze. Abdomen: Soft, nontender. There was no guarding or rigidity. Bowel sounds were heard. Central nervous system: Alert, oriented, was moving all 4 extremities. Extremities: Examination of extremities revealed mild pedal edema. HEENT: Atraumatic, normocephalic. Pupils were equal and reacting to light. DATA: Electrolytes. Sodium 136, potassium 3.0, BUN 29, creatinine 1.4. White cells 16, hemoglobin 9, hematocrit 30. Bilirubin 0.35. ASSESSMENT AND PLAN: 1. Ms. Elly Moura is a 81-year-old lady who has metastatic stomach cancer, asthma, bronchitis who is undergoing chemotherapy. She was noted to have atrial fibrillation, was given Cardizem and subsequently admitted. From a cardiac standpoint recent echocardiogram revealed preserved left ventricular systolic function. However the EKG I have revealed sinus rhythm, telemetry is in sinus rhythm. Her electrolytes, potassium was 3.0 and that has been corrected. I have not seen the EKG pertaining to the atrial fibrillation. Will request all the electrocardiograms be put on chart. D-dimers were elevated. Ultrasound is planned of the stomach. 2. She has gastroesophageal reflux disease and gastroenterology has been consulted. 3. She has metastatic gastric carcinoma as well as followed by oncology. 4. Thrombocytopenia stable. Thank you for the consult. Will follow hospital course.
--- NOTE | 2016-08-01 18:26 | CONSULTATION ---
DATE OF CONSULTATION: 08/01/2016 REQUESTING PHYSICIAN: Dr. Cedeño REASON FOR CONSULTATION: Metastatic gastric cancer, patient known. HISTORY OF PRESENT ILLNESS: Ms. Moura is a pleasant 81-year-old female who is known to us as she is currently receiving treatment for metastatic gastric cancer under Dr. Gonzalez. The patient presented on Wednesday after being seen in our office with complaints of increased shortness of breath and hypoxia. Patient was admitted last week with respiratory illness and was discharged this past Wednesday. She was then seen and evaluated at [facility] at the [place] office on Wednesday, , and Wednesday. She received antibiotics on and Wednesday. Her symptoms continued to worsen and she was sent to the Emergency Department. Upon presentation, she was found to be in atrial fibrillation. She also was found to have cellulitis mainly of that right lower extremity. Patient is status post one cycle of BRANDON on 07/16/2016. She also received Neulasta at 4 mg on 07/17/2016. At this time, the patient is resting comfortably in her hospital room. She has no acute distress. She has her son at bedside. PAST MEDICAL HISTORY: 1. Chronic obstructive pulmonary disease. 2. Polymyalgia rheumatica. 3. Cirrhosis. 4. Obesity. PAST SURGICAL HISTORY: 1. Status post cholecystectomy. 2. Right breast fatty tumor removed. SOCIAL HISTORY: Patient denies any alcohol, drugs, or tobacco use. She now lives with family but was previously living on her own. FAMILY HISTORY: Positive for maternal grandmother for pancreatic cancer, and she has two sisters who have cancer, unknown what kind. REVIEW OF SYSTEMS: As per the HPI. All else is negative and noncontributory. PHYSICAL EXAMINATION: Vital signs: Temperature 97.4, heart rate 99, respirations 16, blood pressure 97/55. O2 saturation 100% on 3 liters nasal cannula. General: Chronically ill appearing female sitting up in hospital bed in no acute distress. Head: Normocephalic, atraumatic. Eyes: Pupils equal, round, and reactive. Ears, nose, throat, neck, and mouth: Oral mucosa appears to be normal. Trachea is midline. Cardiovascular: S1 and S2 heard. Regular rate at this time. Rate controlled. Respiratory: Patient has bilateral rhonchi anteriorly. Scant wheezing as well. Gastrointestinal: Abdomen is soft. Diffuse mild tenderness. Musculoskeletal: No obvious bony abnormalities. Extremities: Patient does have bilateral lower extremity edema up to her mid calf. She has some erythema at the right ankle region that per the son is improved since yesterday. Neurologic: Patient is alert and oriented. No focal motor deficits noted. LABS AND STUDIES: White blood cell 15.19, hemoglobin 8.8, hematocrit 28.3, platelets 69, sodium 139, potassium 3.2, chloride 99, CO2 25, BUN 21, creatinine 1.3, glucose 133. ASSESSMENT AND PLAN: 1. Metastatic gastric cancer. Patient is status post first cycle of BRANDON on 07/16/2016. Treatment is currently on hold. She is due for another cycle next week. 2. Atrial fibrillation. Cardiology is on board. She is status post Cardizem. 3. Chronic obstructive pulmonary disease exacerbation with acute respiratory failure. Continue IV antibiotics, nebulizer treatments, and O2 support per Dr. Taylor. 4. Cellulitis. Continue IV antibiotics. Is improving. 5. Reflux, dysphagia. Gastrointestinal evaluation is pending. 6. Thrombocytopenia. Could be treatment induced. Check fibrinogen. 7. Elevated D-dimer with lower extremity edema. Venous Dopplers have been ordered. Dictated by PAGE Cloud for Yaneth Mckeon MD
[2016-08-02] MEDS: AZACTAM 1 GM in NS 50 ML IV SCH ×3 (02:18→20:33)
[2016-08-02] MEDS: CARAFATE LIQUID PO SCH ×4 (02:18→22:52)
[2016-08-02] MEDS: TESSALON PO PRN ×2 (02:18→22:52)
[2016-08-02] MEDS: DUONEB (A & A) INH SCH ×6 (02:52→23:09)
[2016-08-02 05:19] LABS: ALLEN TEST YES; BE 2.6 mmoll (-3.0-3.0); BLOOD TYPE ARTERIAL; DRAW SITE R RADIAL; METHB 1.2 % (0.0-1.5); O2(CT) 18.7 mL/dL (15.0-23.0); PCO2(98.6) 37 mmHg (35-45); PO2(98.6) 64 mmHg (60-100); SAMPLE BLOOD; SAO2 93.8 % (95.0-100.0); THB 14.7 g/dL (11.5-17.4); pH(98.6) 7.46 (7.35-7.45)
[2016-08-02 05:20] LABS: MODALITY ROOM AIR
[2016-08-02 05:50] LABS: BASO% 0.1 % (0.0-0.8); HEMATOCRIT 27.9 % (37.0-47.0); HEMOGLOBIN 8.6 g/dL (12.0-16.0); IMM GRAN% 2.6 % (0.0-0.5); LYMPH# 0.16 X1000 (1.2-3.4); LYMPH% 0.8 % (20.5-51.1); MANUAL DIFF NEEDED? YES; MCH 27.2 PG (27-31); MCHC 30.8 g/dL (33-37); MCV 88.3 FL (81-99); MONO# 0.59 X1000 (0.11-0.59); MONO% 3.1 % (1.7-9.3); MPV 10.3 FL (7.4-10.4); NEUT% 93.4 % (42.2-75.2); PLT 96 X1000 (130-400); RBC 3.16 XMIL (4.2-5.4)
[2016-08-02 05:59] LABS: BANDS 4 % (0-1); MONO 4 % (1-9)
[2016-08-02 06:06] LABS: CALCIUM 7.7 mg/dL (8.8-10.2); POTASSIUM 3.3 mmol/L (3.5-5.1)
--- NOTE | 2016-08-02 06:54 | EKG Report ---
Test Performed on : 08/02/2016 06:12:40 AM Test Reason : afib? Blood Pressure : / mmHG Vent. Rate : 103 BPM Atrial Rate : 103 BPM P-R Int : 170 ms QRS Dur : 094 ms QT Int : 362 ms P-R-T Axes : 059 -33 048 degrees QTc Int : 474 ms Sinus tachycardia. with premature atrial complexes. Left axis deviation Low voltage QRS Incomplete right bundle branch block Possible Lateral infarct (cited on or before 02-JUL-2008) Abnormal ECG When compared with ECG of 31-JUL-2016 13:04, (Unconfirmed) Sinus rhythm. has replaced Atrial fibrillation. QT has lengthened Confirmed by Edward KIM, Eleazar Nation ([id number]) on 08/04/2016 1:36:10 PM
[2016-08-02] MEDS: PULMICORT INH SCH ×2 (07:28→19:33)
[2016-08-02] MEDS: MUCOMYST 20% INH SCH ×2 (07:28→19:33)
[2016-08-02] MEDS ORDERED: VANCOMYCIN 1,300 MG in NS 250 ML IV SCH (08:00)
[2016-08-02] MEDS ORDERED: KLOR-CON POWDER PACKET PO ONE (08:08)
[2016-08-02] MEDS: FOLIC ACID PO SCH (09:40)
[2016-08-02] MEDS: PERICOLACE PO SCH ×2 (09:40→22:52)
[2016-08-02] MEDS: SODIUM CHLORIDE 0.9% INJ SCH ×2 (09:41→22:52)
[2016-08-02] MEDS: PROTONIX IV SCH ×2 (09:41→22:52)
[2016-08-02] MEDS: ZOFRAN IV PRN ×2 (09:50→13:49)
[2016-08-02] MEDS: SOLU-MEDROL IV SCH ×2 (12:33→23:40)
[2016-08-02] MEDS ORDERED: DULCOLAX PR ONE (13:58)
[2016-08-02] MEDS ORDERED: CALMOSEPTINE OINTMENT TOP PRN (15:41)
--- NOTE | 2016-08-02 15:57 | Diag Imaging Result Document ---
PROCEDURE NAME: CHEST-PORTABLE - 08/02/2016 SINGLE FRONTAL RADIOGRAPH OF THE CHEST: COMPARISON: 07/31/2016. FINDINGS: Left PICC line is in stable position. Lung volumes are very low similar to the previous study. No new consolidations are appreciated. IMPRESSION: Essentially stable chest.
--- NOTE | 2016-08-02 15:58 | Diag Imaging Result Document ---
PROCEDURE NAME: ABDOMEN FLAT/UPRIGHT - 08/02/2016 FLAT AND UPRIGHT RADIOGRAPH THE ABDOMEN: COMPARISON: None available. FINDINGS: There are nonspecific bowel gas and stool patterns. There is no obstructive pattern. There is no evidence of large-volume free abdominal gas. IMPRESSION: Nonspecific abdomen.
[2016-08-02] MEDS ORDERED: DULCOLAX PR PRN (17:05)
--- NOTE | 2016-08-02 18:35 | PROGRESS NOTE ---
DATE: 08/02/2016 PRIMARY GASTROENTEROLOGY: Valdo Mehta MD SUBJECTIVE: Patient resting in bed. She complains of nausea and vomiting multiple times today. She complains of constipation with incomplete relief so far with oral laxatives like Natalya-Colace. She was just given a Dulcolax suppository a few minutes ago. We will evaluate her response. She denies any vomiting blood. OBJECTIVE: Vital signs: Temperature 98.4, pulse rate of 97, respiratory rate 20, blood pressure 105/61, saturating 97% on room air. General Appearance: Moderately built, moderately nourished, lying in bed, in no acute distress. HEENT: Pale conjunctivae. No icterus. Neck: Supple. Abdomen: Obese, discomfort in the area. No rebound. No guarding. Extremities: No cyanosis, clubbing. Neurologic: She is alert, awake, oriented x3. LABORATORY: Hemoglobin and hematocrit is 8.6 and 27.9, white count of 19.2, platelet count of 96,000. Sodium 137, potassium 3.3, chloride 96, bicarb 25, anion gap of 16, BUN of 22, creatinine 1.3, glucose of 124, calcium 7.7. IMAGING: Abdominal x-ray done today showed nonspecific abdomen. Chest x-ray done today showed essentially stable chest. Lung volumes are low similar to previous study. IMPRESSION AND PLAN: 1. Metastatic gastric cancer status post 1st cycle chemotherapy by Dr. Gonzalez. Dr. Gonzalez's team is currently following. 2. Chronic obstructive pulmonary disease and hypoxic respiratory failure which is improving with current treatment with nebulizers. 3. New onset atrial Fibrillation. Electrolyte imbalance. Being treated per primary team. 4. Leukocytosis is getting worse. Primary care team is following. 5. Nausea, vomiting and epigastric pain in the setting of known history of metastatic gastric cancer. We are worried may be gastric outlet obstruction. She had her last esophagogastroduodenoscopy done in June 2016. Dr. Mehta will return tomorrow and decide if she will benefit with another esophagogastroduodenoscopy. 6. Constipation. We will continue Natalya-Colace 2 capsules p.o. b.i.d. and give her a dose of Dulcolax today. We will start her on MiraLAX tomorrow morning. 7. Anemia. Continue to follow and replenish as needed. 8. She will continue on gastrointestinal prophylaxis.
--- NOTE | 2016-08-02 18:39 | PROGRESS NOTE ---
DATE: 08/02/2016 SUBJECTIVE: Family members at the bedside. This patient is complaining today of nausea and vomiting, she denies constipation, fever or chills. I had a really large conversation with her sons about her prognosis, and we decided to talk to Dr. Gonzalez once he is available about if we need to put this patient on comfort measures only or continue with treatment. She he seems to understand that gastric cancer is aggressive. She is not complaining of shortness of breath today. OBJECTIVE: Vital Signs: Temperature 98.4 degrees, pulse 97, respiratory rate 20, blood pressure 105/61, O2 saturation 97% on room air. HEENT: Head normocephalic. No trauma. PERRLA. Neck: Supple. No JVD. No masses. Central trachea. Chest: Bilateral lower lung rales. No wheezing. Abdomen: Soft mild tenderness to palpation in the epigastric area and right upper quadrant. No rebound. Extremities: Trace edema at the level of the lower extremities. Neurological: The patient is alert and oriented x3. No focal neurological deficits. LABORATORY: WBC 19.2, hemoglobin 8.6, hematocrit 27.9, platelets 96,000. Sodium 137, potassium 3.3, chloride 96, bicarbonate 25, BUN 22, creatinine 1.3. Glucose 154, calcium 7.7. ASSESSMENT AND PLAN: 1. Metastatic gastric carcinoma. Dr. Gonzalez has been reconsulted. He is taking care of this patient as an outpatient. The son wants to talk to him about the prognosis and also he would like to discuss if this patient should be on comfort measures only. 2. Acute hypoxemic respiratory failure, likely secondary to chronic obstructive pulmonary disease exacerbation. This is getting better. The dose of steroids has been decreased. She normally takes p.o. steroids. We will continue with inhaled nebulizers. No evidence of pneumonia so far. 3. New onset atrial fibrillation. She is in sinus rhythm at this moment. We will continue to monitor. Cardiology has been consulted and her potassium has been replaced. 4. Hypokalemia. I replaced the potassium. 5. D-dimer elevated. A venous ultrasound was already ordered to rule out deep venous thrombosis, but this patient is not complaining about lower extremity pain or swelling. 6. Leukocytosis. Probably this is secondary to chronic steroid use and/or infection. We will continue with steroids, but also we will place this patient on antibiotics. 7. Dysphagia. Gastroenterology has been consulted. This patient was evaluated by Dr. Amador, but Dr. Mehta is taking care of this patient as an outpatient. 8. Thrombocytopenia stable. 9. Deep venous thrombosis prophylaxis. We will do Sequential Compression Devices for now. Probably this patient should be on anticoagulation because of the atrial fibrillation. 10. Gastrointestinal prophylaxis. We will do proton pump inhibitor.
[2016-08-02] MEDS ORDERED: COMPAZINE IV ONE (20:04)
[2016-08-02] MEDS ORDERED: SODIUM CHLORIDE 0.9% INJ PRN (20:08)
[2016-08-02 20:32] LABS: ALLEN TEST YES; BE 3.8 mmoll (-3.0-3.0); BLOOD TYPE ARTERIAL; DRAW SITE R RADIAL; METHB 1.4 % (0.0-1.5); O2(CT) 12.8 mL/dL (15.0-23.0); PCO2(98.6) 38 mmHg (35-45); PO2(98.6) 65 mmHg (60-100); SAMPLE BLOOD; SAO2 94.9 % (95.0-100.0); THB 9.8 g/dL (11.5-17.4); pH(98.6) 7.47 (7.35-7.45)
[2016-08-02 20:33] LABS: MODALITY CANNULA
[2016-08-02] MEDS ORDERED: DULCOLAX PR SCH (21:00)
[2016-08-02] MEDS ORDERED: LASIX IV ONE (21:11)
[2016-08-03] MEDS: DUONEB (A & A) INH SCH ×6 (03:20→23:09)
[2016-08-03] MEDS: CARAFATE LIQUID PO SCH ×4 (04:09→20:37)
[2016-08-03 05:04] LABS: ALLEN TEST YES; BE 1.6 mmoll (-3.0-3.0); BLOOD TYPE ARTERIAL; DRAW SITE R RADIAL; METHB 1.4 % (0.0-1.5); O2(CT) 13.8 mL/dL (15.0-23.0); PCO2(98.6) 38 mmHg (35-45); PO2(98.6) 83 mmHg (60-100); SAMPLE BLOOD; SAO2 97.5 % (95.0-100.0); THB 10.3 g/dL (11.5-17.4); pH(98.6) 7.44 (7.35-7.45)
[2016-08-03] MEDS: AZACTAM 1 GM in NS 50 ML IV SCH ×3 (05:04→20:37)
[2016-08-03 06:09] LABS: MODALITY VENTIMASK
[2016-08-03 06:53] LABS: BASO% 0.1 % (0.0-0.8); HEMOGLOBIN 9.5 g/dL (12.0-16.0); IMM GRAN# 0.47 X1000 (0.0-0.04); IMM GRAN% 1.4 % (0.0-0.5); LYMPH# 0.17 X1000 (1.2-3.4); LYMPH% 0.5 % (20.5-51.1); MANUAL DIFF NEEDED? YES; MCH 28.2 PG (27-31); MCHC 31.7 g/dL (33-37); MONO% 2.9 % (1.7-9.3); MPV 10.1 FL (7.4-10.4); NEUT% 95.1 % (42.2-75.2); PLT 117 X1000 (130-400); RBC 3.37 XMIL (4.2-5.4)
[2016-08-03 07:16] LABS: BANDS 24 % (0-1); MONO 2 % (1-9)
[2016-08-03 07:20] LABS: CALCIUM 8.2 mg/dL (8.8-10.2); POTASSIUM 3.6 mmol/L (3.5-5.1)
[2016-08-03] MEDS: PULMICORT INH SCH ×2 (07:25→19:20)
[2016-08-03] MEDS: FOLIC ACID PO SCH (08:57)
[2016-08-03] MEDS: PERICOLACE PO SCH ×2 (08:57→20:37)
[2016-08-03] MEDS: PROTONIX IV SCH ×2 (08:58→20:37)
[2016-08-03] MEDS: MIRALAX PO SCH (08:58)
[2016-08-03] MEDS: SODIUM CHLORIDE 0.9% INJ SCH (08:58)
[2016-08-03] MEDS ORDERED: MIRALAX PO SCH (09:00)
[2016-08-03] MEDS: SOLU-MEDROL IV SCH (11:48)
[2016-08-03] MEDS: ZOFRAN IV PRN (14:21)
--- NOTE | 2016-08-03 15:51 | PROGRESS NOTE ---
DATE: 08/03/2016 SUBJECTIVE: The patient states that she is still having difficulty with swallowing. She states that whenever she tries to swallow, the food feels like it gets stuck in the center of her chest and then it comes back up again. OBJECTIVE: Vital Signs: Temperature 97 degrees, blood pressure 99/63, heart rate 54, respirations 28. O2 saturations 99% on 6 L nasal cannula. General: This is a morbidly obese female, lying in bed, in no acute distress. Head: Normocephalic, atraumatic. Heart: S1, S2. Normal. Regular rate and rhythm. Lungs: Coarse breath sounds bilaterally. No wheezing. Abdomen: Positive bowel sounds. Soft, nontender, nondistended. Extremities: No edema. No cyanosis. No calf tenderness. Neurological: The patient is awake and alert. No focal neurologic deficits noted. LABS: White blood cell count 34, hemoglobin 9.5, hematocrit 30, platelets 117,000. ABGs: PH of 7.44, pCO2 38, pO2 83, bicarb 26. Sodium 136, potassium 3.6, chloride 97, CO2 25, BUN 26, creatinine 1.6. Glucose 166, calcium 8.2. ASSESSMENT AND PLAN: 1. Dysphagia with nausea and vomiting. The patient will be assessed by the inlayer silver again today. 2. Acute hypoxemic respiratory failure. The patient is slowly improving. She is currently on nasal cannula. She still has coarse breath sounds secondary to her last hospitalization. Continue with bronchodilator therapy, IV antibiotics, and steroid therapy. Pulmonary is following. 3. Atrial fibrillation. Management as per the rag washer. 4. Acute kidney injury on chronic kidney disease. The patient's creatinine did bump up to 1.6 today. Will continue to monitor the patient's urine output closely. The patient is not on any nephrotoxic agents at this time. 5. Leukocytosis. The patient's white blood cell count did increase to 34,000 today. We will consult Dr. Wills for further recommendations. 6. Thrombocytopenia, aware. We will monitor the patient's platelet count closely. 7. Metastatic gastric carcinoma, aware. Management as per the oncologist. 8. Continue with physical therapy.
--- NOTE | 2016-08-03 16:04 | Diag Imaging Result Document ---
PROCEDURE NAME: LUNG SCAN / VQ - 08/03/2016 VENTILATION/PERFUSION LUNG SCAN: FINDINGS: The patient was injected with 6.1 mCi of technetium-99m MAA and received 38.7 mCi of technetium-99m DTPA aerosol for the ventilation portion of the study. Much of this apparently was distributed in the bronchi and very little in the distal airways. In any event, there is no evidence of ventilation-perfusion mismatch rather there is much better perfusion activity than on the ventilation scan. No absolute perfusion defects are demonstrated. IMPRESSION: Low probability for pulmonary embolus.
[2016-08-03] MEDS: ZYVOX 600 MG/D5W 300 ML IV SCH (17:09)
[2016-08-03] MEDS: MUCOMYST 20% INH SCH (19:20)
[2016-08-03] MEDS: DIFLUCAN LIQUID PO SCH (20:50)
--- NOTE | 2016-08-03 21:07 | CONSULTATION ---
DATE OF CONSULTATION: 08/03/2016 CONCLUSION: I was asked to see the patient. She has a marked leukocytosis. I think in part this could be due to the fact she has is on steroids and also she has had Neulasta. Certainly infection would be a diagnostic possibility also. The patient also came in with respiratory failure and she remains very dyspneic and has desaturation. It does not appear she has a pneumonia. I am concerned that she may have a pulmonary embolus. She does have a history of bronchial asthma, and she also has a history of COPD, and bronchial asthma, which could be causing her desaturation as well. Also, it is noted that today the patient's creatinine is beginning to increase. Also, possibly the patient's shortness of breath may be due to pulmonary metastatic disease from her gastric cancer. ALLERGIES: The patient has a severe allergy to penicillin that is manifested by anaphylaxis, and aspirin has shortness of breath. RECOMMENDATIONS: I have discontinued vancomycin and put the patient on Zyvox. Also I have ordered a ventilation-perfusion lung scan. DISCUSSION: The patient is hard of hearing. She is very short of breath. She could not give a history. Two family members were there that helped with her history. I also reviewed the exam of the data in the computer. The patient was recently diagnosed with metastatic gastric cancer. She has a history of COPD and bronchial asthma. She came in to the hospital because of desaturation. She has had an increasing white count. Today it was 34,800. Unfortunately her creatinine today increased to 1.6 and the GFR decreased to 31. The patient's CBC showed a white count of 34,800, hemoglobin 9.5, and platelet count 117,000. The blood gases showed this pH of 7.44, PO2 of 83, pCO2 of 38. Creatinine is 1.6. GFR is 31. Chest x-ray shows no consolidation, but low lung volumes. PAST MEDICAL HISTORY: Positive for metastatic gastric cancer. Bronchial asthma. COPD. Morbid obesity. Polymyalgia rheumatica. Psoriasis. PAST SURGICAL HISTORY: Positive for cholecystectomy and removal of a right chest fatty tumor. SOCIAL HISTORY: The patient lives alone, but in the past month a family member has been staying with her. She is a nonsmoker. She does not drink alcoholic beverages or abuse drugs. FAMILY HISTORY: Said to be negative. The patient has allergies to aspirin and penicillin as mentioned above. HOME MEDICATIONS INCLUDE THE FOLLOWING: Prednisone, Tessalon Perles, Breo, albuterol, Lasix, folic acid, Levaquin and prednisone. PHYSICAL EXAMINATION: Vital Signs: Temperature is 98.1 degrees, pulse 100, respirations 27, blood pressure 114/85. Patient's weight is listed as 189 pounds. Generally: This is an obese, elderly female who appears to be quite dyspneic even at rest. Head, eyes, ears, nose, and throat: She has decreased hearing. She can see near objects. There were no white patches on her tongue. Neck: No meningismus. Thorax: There was no increased AP diameter of the chest. Lungs: There were bilateral rhonchi. I did not hear any wheezes or rales. Cardiovascular: Heart rate was regular and there was bilateral leg edema. Abdomen: Soft and nontender. Neurologic: Patient is awake. She can move her extremities, but she is very weak. She had decreased hearing. She did attempt to answer questions and answered appropriately when she could hear what I was saying. Integument: No rash noted. Thank you for the consult.
--- NOTE | 2016-08-03 22:13 | PROGRESS NOTE ---
DATE: 08/03/2016 SUBJECTIVE: Patient is resting comfortably. She has been able to swallow and kept down some soup as well as Jello. She has not had any vomiting today. She continues to complain of some cough and congestion. OBJECTIVE: Vital Signs: Temperature 97.8 degrees, pulse is 98 per minute, breathing rate of 16, blood pressure was 152/58. Abdomen: Abdomen is full, it has got multiple masses felt, bowel sounds are audible. Extremities: No pedal edema noted. HEENT: Mouth has got oral thrush. IMPRESSION: 1. Oral thrush with most likely candidal esophagitis. 2. Metastatic adenocarcinoma of stomach. PLAN: I would start her on Diflucan and nystatin swish and swallow as well. Continue liquid diet and advance as tolerated. I do not think we need to proceed with any endoscopy at this point. I have discussed the case extensively with the patient's daughter and the patient herself, and answered all their pertinent questions. MTDD
[2016-08-04] MEDS: SOLU-MEDROL IV SCH ×3 (00:20→21:45)
[2016-08-04] MEDS: DUONEB (A & A) INH SCH ×6 (03:12→22:50)
[2016-08-04] MEDS: ZYVOX 600 MG/D5W 300 ML IV SCH ×2 (04:08→16:44)
[2016-08-04] MEDS: AZACTAM 1 GM in NS 50 ML IV SCH ×3 (04:08→21:44)
[2016-08-04] MEDS: CARAFATE LIQUID PO SCH ×4 (04:22→21:46)
[2016-08-04 06:53] LABS: BASO% 0.1 % (0.0-0.8); HEMATOCRIT 27.2 % (37.0-47.0); HEMOGLOBIN 8.6 g/dL (12.0-16.0); IMM GRAN# 0.21 X1000 (0.0-0.04); IMM GRAN% 0.9 % (0.0-0.5); LYMPH# 0.17 X1000 (1.2-3.4); LYMPH% 0.7 % (20.5-51.1); MANUAL DIFF NEEDED? YES; MCH 28.3 PG (27-31); MCHC 31.6 g/dL (33-37); MCV 89.5 FL (81-99); MONO# 0.45 X1000 (0.11-0.59); MONO% 1.9 % (1.7-9.3); MPV 10.1 FL (7.4-10.4); NEUT% 96.4 % (42.2-75.2); PLT 100 X1000 (130-400); RBC 3.04 XMIL (4.2-5.4)
[2016-08-04 06:56] LABS: ALBUMIN 2.4 g/dL (3.5-5.0); CALCIUM 8.2 mg/dL (8.8-10.2); POTASSIUM 3.3 mmol/L (3.5-5.1); TOTAL BILIRUBIN 0.37 mg/dL (0.20-1.00); TOTAL PROTEIN 4.4 g/dL (6.3-8.3)
[2016-08-04 07:27] LABS: BANDS 2 % (0-1)
[2016-08-04] MEDS: PULMICORT INH SCH ×2 (07:30→19:40)
[2016-08-04] MEDS: MUCOMYST 20% INH SCH ×2 (07:30→19:40)
[2016-08-04] MEDS ORDERED: KLOR-CON PO ONE (08:47)
[2016-08-04] MEDS: DIFLUCAN LIQUID PO SCH (09:22)
[2016-08-04] MEDS: PROTONIX IV SCH ×2 (09:23→21:45)
[2016-08-04] MEDS: SODIUM CHLORIDE 0.9% INJ SCH (09:23)
[2016-08-04] MEDS: MIRALAX PO SCH (09:23)
[2016-08-04] MEDS: FOLIC ACID PO SCH (09:23)
[2016-08-04] MEDS: PERICOLACE PO SCH ×2 (09:23→21:46)
[2016-08-04] MEDS: PHENERGAN IV PRN (09:32)
[2016-08-04] MEDS ORDERED: POTASSIUM CHLORIDE 40 MEQ/SWI 100 ML IV ONE (12:33)
[2016-08-04] MEDS ORDERED: NS 0 ML ONE (13:47)
--- NOTE | 2016-08-04 15:03 | PROGRESS NOTE ---
DATE: 08/04/2016 SUBJECTIVE: Patient is in bed resting. No significant complaints. She is trying to eat slowly. She has had some episodes of vomiting. OBJECTIVE: Vital Signs: Temperature 98.1 degrees, pulse 101, respirations 18, blood pressure 107/83. LABORATORY: Hematology. White count 23.22, hemoglobin 8.6, hematocrit 27.2, MCV 89.5. Chemistry. Sodium 135, potassium 3.3, chloride 97, CO2 26, BUN 29, creatinine 1.8, glucose 184. ASSESSMENT: 1. Oral thrush most likely candidal esophagitis. 2. Metastatic adenocarcinoma of the stomach. PLAN: Diflucan was started yesterday and nystatin swish and swallow. Continue those medications. Continue liquid diet as tolerated. At this point, is not felt an endoscopy is needed. We will continue to follow and if symptoms do not improve further plans will be made. I have discussed the case with Dr. Mehta. I have talked with the patient and her daughter. Dictated by JIGNESH Coffey for Valdo Mehta MD
[2016-08-04] MEDS ORDERED: LASIX IV ONE (15:19)
--- NOTE | 2016-08-04 15:19 | EKG Report ---
Test Performed on : 08/04/2016 3:10:16 PM Test Reason : afib Blood Pressure : / mmHG Vent. Rate : 102 BPM Atrial Rate : 102 BPM P-R Int : 208 ms QRS Dur : 100 ms QT Int : 334 ms P-R-T Axes : 036 -26 032 degrees QTc Int : 435 ms Sinus tachycardia. with premature atrial complexes. in a pattern of bigeminy. Possible Anterolateral infarct (cited on or before 02-JUL-2008) Abnormal ECG When compared with ECG of 02-AUG-2016 06:12, Serial changes of Anterior infarct present Confirmed by Edward KIM, Eleazar Nation ([id number]) on 08/05/2016 5:18:16 PM
--- NOTE | 2016-08-04 15:43 | Diag Imaging Result Document ---
PROCEDURE NAME: CHEST-PORTABLE - 08/04/2016 SINGLE FRONTAL RADIOGRAPH OF THE CHEST: COMPARISON: 08/02/2016. FINDINGS: The left PICC line is stable. Inspiration remains suboptimal. No new consolidations are identified. Cardiac silhouette and central vasculature are unremarkable. IMPRESSION: Stable chest.
--- NOTE | 2016-08-04 15:48 | PROGRESS NOTE ---
DATE: 08/04/2016 PRESENT ILLNESS: I think the patient does have pneumonia even though it is not well visualized on the x-ray. MEDICATIONS: She currently is receiving a combination of aztreonam and Zyvox. She also is on steroids. PHYSICAL EXAMINATION: Vital Signs: Temperature is 98.1 degrees, pulse 101, respirations 18, pressure 107/83. Generally: This is an ill-appearing elderly female. She is in no acute distress. Lungs: There were scattered rhonchi bilaterally. Cardiovascular: Regular heart rate. Abdomen: Soft and nontender. There does seem to be a mass in the upper part of the abdomen. LAB AND X-RAY STUDIES: No new x-ray today. Lab shows a CBC, the white count is down to 23,220, hemoglobin 8.6, and platelet count 100,000. The patient's lung scan showed low probability of pulmonary embolus. The patient's creatinine for today is 1.8, GFR is 27. ASSESSMENT AND PLAN: The patient has a high leukocytosis. I believe she has a pulmonary infection. My plan would be to continue with the current antibiotics. COMORBIDITIES: The patient does have bronchial asthma, COPD, and also gastric cancer.
--- NOTE | 2016-08-04 16:15 | PROGRESS NOTE ---
DATE: 08/04/2016 SUBJECTIVE: The patient states that she feels okay. No acute events noted overnight. PHYSICAL EXAMINATION: Vital Signs: Temperature 98 degrees, blood pressure 107/83, heart rate 99, respirations 17, O2 saturation 96% on 5L nasal cannula. General: This is a chronically ill- appearing, elderly female, lying in bed in no acute distress. HEENT: Head normocephalic, atraumatic. Heart: S1 and S2 normal. Regular rate and rhythm. Lungs: Coarse breath sounds with crackles bilaterally. Abdomen: Positive bowel sounds. Soft, nontender, nondistended. Extremities: Edema +1. No cyanosis. No calf tenderness. Neurologic: The patient is alert and oriented x3. LABORATORIES: White blood cell count 23, hemoglobin 8.6, hematocrit 27, platelets 100,000. Sodium 135, potassium 3.3, chloride 97, CO2 of 26, BUN 29, creatinine 1.8, glucose 84. ASSESSMENT AND PLAN: 1. Acute on chronic hypoxemic respiratory failure. The patient is on 5L nasal cannula. We will continue with IV antibiotic therapy and bronchodilator therapy. Will also give the patient a dose of IV Lasix today. 2. Suspected oral candidiasis. The patient is currently on Diflucan. 3. Acute kidney injury on chronic kidney disease. We will check urine electrolytes. 4. Metastatic gastric carcinoma. Aware. 5. Leukocytosis. Improving. 6. Thrombocytopenia. Stable. 7. Morbid obesity. Aware. 8. Continue with physical therapy.
[2016-08-04] MEDS: ALBUMIN 25% IV SCH (16:44)
[2016-08-04 17:26] LABS: UR CREAT RANDOM 26.4 mg/dL (11-20); UR PROT RANDOM 12.1 mg/dL
[2016-08-05] MEDS: TESSALON PO PRN ×2 (01:08→20:34)
[2016-08-05] MEDS: SOLU-MEDROL IV SCH ×3 (01:09→23:14)
[2016-08-05] MEDS: DUONEB (A & A) INH SCH ×5 (03:40→23:30)
[2016-08-05] MEDS: AZACTAM 1 GM in NS 50 ML IV SCH ×3 (04:41→20:00)
[2016-08-05] MEDS: CARAFATE LIQUID PO SCH ×4 (04:41→20:33)
[2016-08-05] MEDS: ZYVOX 600 MG/D5W 300 ML IV SCH ×2 (05:10→18:26)
[2016-08-05 07:12] LABS: BASO% 0.1 % (0.0-0.8); HEMATOCRIT 24.6 % (37.0-47.0); HEMOGLOBIN 7.5 g/dL (12.0-16.0); IMM GRAN# 0.14 X1000 (0.0-0.04); IMM GRAN% 0.9 % (0.0-0.5); LYMPH# 0.14 X1000 (1.2-3.4); LYMPH% 0.9 % (20.5-51.1); MANUAL DIFF NEEDED? YES; MCH 27.6 PG (27-31); MCHC 30.5 g/dL (33-37); MCV 90.4 FL (81-99); MONO# 0.34 X1000 (0.11-0.59); MONO% 2.3 % (1.7-9.3); NEUT% 95.8 % (42.2-75.2); PLT 93 X1000 (130-400); RBC 2.72 XMIL (4.2-5.4)
[2016-08-05 07:25] LABS: CALCIUM 8.6 mg/dL (8.8-10.2); MAGNESIUM 1.8 mg/dL (1.5-2.7); POTASSIUM 3.4 mmol/L (3.5-5.1)
[2016-08-05] MEDS: PULMICORT INH SCH ×2 (07:54→19:59)
[2016-08-05] MEDS: MUCOMYST 20% INH SCH ×2 (07:54→19:59)
[2016-08-05 08:08] LABS: BANDS 4 % (0-1); MONO 2 % (1-9)
[2016-08-05] MEDS ORDERED: KLOR-CON PO ONE (09:00)
[2016-08-05] MEDS: PROTONIX IV SCH (10:02)
[2016-08-05] MEDS: SODIUM CHLORIDE 0.9% INJ SCH (10:02)
[2016-08-05] MEDS: FOLIC ACID PO SCH (10:03)
[2016-08-05] MEDS: DIFLUCAN LIQUID PO SCH (11:00)
[2016-08-05] MEDS: MIRALAX PO SCH (11:26)
[2016-08-05] MEDS: LASIX IV SCH (11:27)
[2016-08-05] MEDS: ALBUMIN 25% IV SCH (11:28)
[2016-08-05] MEDS ORDERED: POTASSIUM CHLORIDE 40 MEQ/SWI 100 ML IV ONE (12:04)
[2016-08-05] MEDS ORDERED: MAGNESIUM SULFATE 2 GM/S.W.I. 50 ML IV ONE (12:05)
[2016-08-05] MEDS: PERICOLACE PO SCH ×2 (13:19→20:34)
--- NOTE | 2016-08-05 13:50 | PROGRESS NOTE ---
DATE: 08/05/2016 SUBJECTIVE: The patient states that she feels a little bit better today. The patient states that she is unable to keep liquids down. Every time she tries to swallow, within a few minutes the liquid comes back up. OBJECTIVE: Vital Signs: Temperature 97.6 degrees, blood pressure 98/49, heart rate 89, respirations 22, O2 saturations 99% on 5 L nasal cannula. General: This is a morbidly obese female, lying in bed in no acute distress. Head: Normocephalic, atraumatic. Heart: S1, S2. Normal. Regular rate and rhythm. Lungs: Coarse breath sounds bilaterally. Abdomen: Positive bowel sounds. Soft, nontender, nondistended. Extremities: +1 edema. No cyanosis. No calf tenderness. Neurologic: The patient is alert and oriented x3. She is hard of hearing. LABS: White blood cell count 15, hemoglobin 7.5, hematocrit 24, platelets 93. Sodium 137, potassium 3.4, chloride 97, CO2 27, BUN 28, creatinine 1.5, glucose 181 and magnesium 1.8. ASSESSMENT AND PLAN: 1. Dysphagia. The patient states that she is unable to tolerate the liquid diet at this time. Will await further recommendations from the computer lab assistant. 2. Oral candidiasis. The patient is on Diflucan. 3. Acute bronchitis. Continue on intravenous antibiotics and bronchodilator therapy. 4. Metastatic gastric carcinoma. Aware. Oncology is following. 5. Leukocytosis. Improved on the current antibiotic regimen. Dr. Wills is following. 6. Volume overload. The patient is currently on Lasix. 7. Continue physical therapy. 8. Severe protein calorie malnutrition. We will start the patient on total parenteral nutrition since she is unable to maintain her nutritional status by mouth.
--- NOTE | 2016-08-05 14:56 | PROGRESS NOTE ---
DATE: 08/05/2016 SUBJECTIVE: Patient states she is still having trouble keeping any liquids or food down. When she tries to drink or eat thin liquid comes back a few minutes later. OBJECTIVE: Vital Signs: Temperature 97.6 degrees, pulse 90, respirations 20, blood pressure 99/59. General: Patient is awake, alert, in no acute distress. HEENT: Normocephalic, atraumatic. Pupils equal, round, reactive to light. Sclerae nonicteric. Cardiovascular: Regular rate and rhythm. Respiratory: With coarse breath sounds bilaterally. Abdomen: Soft, nontender. Positive bowel sounds. DIAGNOSTIC RESULTS: Laboratory: Hematology: White count 15.01, hemoglobin 7.5, hematocrit 24.6, MCV 90.4, platelets 93,000. Coagulation: Protime 11.3, INR 1.07. Chemistry: Sodium 137, potassium 3.4, chloride 97, CO2 27, BUN 28, creatinine 1.5, glucose 181. ASSESSMENT: 1. Dysphagia. Continues despite starting on Diflucan and nystatin for possible candidal esophagitis. 2. Oral callum. Continue Diflucan and nystatin. 3. Metastatic gastric carcinoma. Oncology is following. 4. Protein calorie malnutrition. She is being started on parental nutrition since she is unable to tolerate eating at present time. PLAN: Continue current medications. Continue Carafate. Continue PPI since she continues to have difficulties in swallowing I recommend to proceed with an EGD. I have discussed the case with the daughter and the patient. They are going to talk with the sons and will plan to proceed if they are all in agreement. I have discussed the procedure along with benefits and risks of the procedure. We will plan to proceed with EGD tomorrow if family is in agreement. I have discussed this case with Dr. Mehta. Dictated by JIGNESH Coffey for Valdo Mehta MD
[2016-08-05] MEDS ORDERED: D10W 1,000 ML IV SCH (15:00)
--- NOTE | 2016-08-05 15:32 | PROGRESS NOTE ---
DATE: 08/05/2016 PRESENT ILLNESS: I am seeing the patient for treatment of her pneumonia. MEDICATIONS: The patient is receiving a combination of aztreonam and Zyvox. She also is on steroids. PHYSICAL EXAMINATION: Vital Signs: Temperature is 97.6 degrees, pulse 90, respirations 20, blood pressure 99/59. Generally: This is an ill-appearing, elderly female. She is in no acute distress. She does report however that she cannot swallow and get food down and she ends up having to vomit. Lungs: Clear to auscultation. Cardiovascular: There were distant heart tones, they appeared to be irregular. Abdomen: Soft. There was a mass in epigastric area. Legs: There was bilateral edema. LAB AND X-RAY: CBC today has a white count of 15,010, hemoglobin 7.5, and platelet count 93,000. Creatinine is 1.5. GFR is 33. Chest x-ray shows no new consolidation. ASSESSMENT AND PLAN: The patient has resolving leukocytosis which I think is secondary to pneumonia. Part of the leukocytosis could be caused by steroids. My plan will be to continue with the patient's antimicrobial therapy. COMORBIDITIES: Include bronchial asthma, COPD, and gastric cancer.
[2016-08-05] MEDS ORDERED: ZOFRAN IV PRN (15:38)
[2016-08-05] MEDS ORDERED: PROTONIX 80 MG in NS 80 ML IV SCH (15:45)
[2016-08-05] MEDS ORDERED: TPN ELECTROLYTES 20 ML, MAGNESIUM SULFATE 5 MEQ, POTASSIUM CHLORIDE 20 MEQ, M.V.I.-12 1... IV SCH ×8 (16:00)
[2016-08-05] MEDS ORDERED: LIPOSYN 20% 250 ML IV SCH (16:00)
[2016-08-05] MEDS ORDERED: NS 500 ML ONE (18:34)
[2016-08-05] MEDS: PROTONIX 80 MG in NS 80 ML IV SCH (20:00)
[2016-08-05] MEDS: PHENERGAN IV PRN (20:30)
[2016-08-06] MEDS: CARAFATE LIQUID PO SCH ×2 (00:20→08:46)
[2016-08-06] MEDS: AZACTAM 1 GM in NS 50 ML IV SCH (03:00)
[2016-08-06] MEDS: DUONEB (A & A) INH SCH ×6 (04:14→22:51)
[2016-08-06] MEDS: ZYVOX 600 MG/D5W 300 ML IV SCH (05:00)
[2016-08-06] MEDS: PROTONIX 80 MG in NS 80 ML IV SCH (05:12)
[2016-08-06 06:17] LABS: BASO% 0.2 % (0.0-0.8); HEMATOCRIT 30.5 % (37.0-47.0); HEMOGLOBIN 9.7 g/dL (12.0-16.0); IMM GRAN# 0.25 X1000 (0.0-0.04); IMM GRAN% 1.3 % (0.0-0.5); LYMPH# 0.25 X1000 (1.2-3.4); LYMPH% 1.3 % (20.5-51.1); MANUAL DIFF NEEDED? YES; MCH 28.8 PG (27-31); MCHC 31.8 g/dL (33-37); MCV 90.5 FL (81-99); MONO# 0.71 X1000 (0.11-0.59); MONO% 3.6 % (1.7-9.3); MPV 10.3 FL (7.4-10.4); NEUT% 93.6 % (42.2-75.2); PLT 126 X1000 (130-400); RBC 3.37 XMIL (4.2-5.4)
[2016-08-06 06:36] LABS: BANDS 12 % (0-1); LYMPHS 2 % (21-51); MAGNESIUM 2.3 mg/dL (1.5-2.7); MONO 4 % (1-9); POTASSIUM 3.7 mmol/L (3.5-5.1)
[2016-08-06] MEDS: PULMICORT INH SCH (07:30)
[2016-08-06] MEDS: MUCOMYST 20% INH SCH (07:30)
--- NOTE | 2016-08-06 07:56 | Diag Imaging Result Document ---
PROCEDURE NAME: CHEST-PORTABLE - 08/06/2016 SINGLE FRONTAL RADIOGRAPH OF THE CHEST: COMPARISON: 08/04/2016. FINDINGS: Left PICC line is stable. Inspiration is suboptimal. There appears to be mild atelectasis at the left lung base. There is a slight increase in perihilar lung markings on the right that may be due to the patient's rotation. Mild pulmonary venous congestion is also possible. No other new consolidations are identified. Cardiac silhouette is stable. IMPRESSION: 1. Slight increase in right perihilar opacity. Please see above discussion. 2. Suggestion of at least subsegmental atelectasis at the left lung base.
[2016-08-06] MEDS ORDERED: LASIX IV ONE (08:33)
[2016-08-06] MEDS: LASIX IV SCH (08:46)
[2016-08-06] MEDS: DIFLUCAN LIQUID PO SCH (08:46)
[2016-08-06] MEDS: ALBUMIN 25% IV SCH (09:02)
[2016-08-06] MEDS: PERICOLACE PO SCH (09:03)
[2016-08-06] MEDS: FOLIC ACID PO SCH (09:03)
[2016-08-06] MEDS: MIRALAX PO SCH (09:04)
[2016-08-06 11:17] LABS: PREALBUMIN 12.7 mg/dL (20-40)
[2016-08-06] MEDS: SOLU-MEDROL IV SCH (11:59)
[2016-08-06] MEDS ORDERED: MYLICON DROPS (DOSE) MISC ONE (13:11)
[2016-08-06] MEDS ORDERED: MORPHINE IV PRN (13:46)
[2016-08-06] MEDS ORDERED: DIPRIVAN 1% ONE (13:53)
--- NOTE | 2016-08-06 14:35 | PROGRESS NOTE ---
DATE: 08/06/2016 SUBJECTIVE: The patient is resting comfortably in bed. She is scheduled for an EGD today. She is n.p.o. and currently receiving TPN. OBJECTIVE: Vital Signs: Temperature 97.9 degrees, blood pressure 151/70, heart rate 84, respirations 18, O2 saturation 98% on 4L nasal cannula. General: This is a elderly female lying in bed in no acute distress. HEENT: Head normocephalic, atraumatic. Heart: S1 and S2 normal. Regular rate and rhythm. Lungs: Coarse breath sounds bilaterally with rhonchi. Abdomen: Positive bowel sounds. Soft, nontender, nondistended. Extremities: Trace pedal edema. No cyanosis. No calf tenderness. Neurologic: The patient is alert and oriented x3. She is hard of hearing. LABORATORIES: White blood cell count 19, hemoglobin 9.7, hematocrit 30, platelets 126,000. Sodium 140, potassium 3.7, chloride 98, CO2 of 27, BUN 27, creatinine 1.4, glucose 188, phosphorus 2.7, magnesium 2.3. ASSESSMENT AND PLAN: 1. Gastrointestinal bleed. Continue on Protonix. The patient is scheduled for an EGD today. 2. Dysphagia. This will be assessed during the EGD today. Continue on TPN. The patient is n.p.o. at this time. 3. Acute bronchitis. Continue on IV antibiotic therapy and bronchodilator therapy. Infectious Disease and Pulmonary are following. 4. Leukocytosis. The patient's white blood cell count did increase again. Today it is 19,000. 5. Metastatic gastric carcinoma. Aware. Oncology is following. 6. Oral candidiasis. Continue on Diflucan. 7. Thrombocytopenia. Improved. 8. Stage 3 chronic kidney disease. Stable.
--- NOTE | 2016-08-06 15:05 | OPERATIVE NOTE ---
PROCEDURE DATE: 08/06/2016 PROCEDURE: Esophagogastroduodenoscopy. PREOPERATIVE DIAGNOSES: 1. Acute gastrointestinal bleed. 2. Anemia secondary to gastrointestinal bleed. 3. Vomiting. 4. History of metastatic stomach cancer. 5. Dysphagia. POSTOPERATIVE DIAGNOSES: 1. Severe esophagitis distal third esophagus. 2. Retained gastric content. 3. Evidence of gastrointestinal bleed oozing diffusely from the tumor. 4. Gastric mass. HISTORY: This is a 81-year-old white female who has history of metastatic gastric cancer. Has presented to the hospital with dysphagia, vomiting, had an episode of hematemesis, and was transferred to ICU. EGD was done to check for the source of her bleeding and also dysphagia. DESCRIPTION OF PROCEDURE: Informed consent obtained from the patient. Procedure risks, benefits, alternatives were explained in layman's terms. She understood. All the pertinent questions were answered. Patient was brought to the endoscopy unit and was premedicated as per Anesthesia. After adequate sedation, while she was lying in the left lateral position, the gastroscope was introduced into the posterior pharynx and advanced under direct vision into the esophagus. There was a good bit of reflux of gastric content into the esophagus which was mostly blood tinged gastric content. Suction was employed to cleanse the area as much as possible. Scope was then passed in the distal esophagus where I saw ulcerated mucosa of the esophagus. There was no active bleeding from the esophagus. No varices were seen. There was evidence of severe mucositis/esophagitis of the distal esophagus which did not appeared to be peptic in origin. The scope was then passed through the esophagus into the stomach. Stomach could only be visualized partially because of large gastric content, mostly blood tinged, but there was some particulate matter as well. Suction was employed to cleanse as much as I could but I could not completely cleanse the stomach. There was a mass again seen in the body of the stomach. The gastric content was not going down in the distal stomach. At this point, I went ahead withdrew the scope. The antrum as well as the duodenum could not be examined. IMPRESSION: 1. Gastric outlet obstruction. 2. Retained gastric content. 3. Gastric mass. 4. Severe esophagitis, most likely mucositis. RECOMMENDATION: At this point, she needs to be put on palliative care. She does have of new gastric outlet obstruction. I had a lengthy discussion with the family, her son and daughter, and decided to make her DNR and consult palliative care. Case was also discussed with Dr. Gonzalez.
[2016-08-06] MEDS ORDERED: XYLOCAINE-MPF 2% ONE (16:10)
[2016-08-06] MEDS ORDERED: LR 1,000 ML ONE (16:10)
[2016-08-06] MEDS ORDERED: ATIVAN IV PRN (18:10)
[2016-08-06] MEDS ORDERED: TRANSDERM-SCOP TD SCH (18:15)
[2016-08-06] MEDS ORDERED: TPN ELECTROLYTES 20 ML, MAGNESIUM SULFATE 5 MEQ, POTASSIUM CHLORIDE 20 MEQ, M.V.I.-12 1... IV SCH ×8 (20:00)
[2016-08-07] MEDS: PHENERGAN IV PRN (02:40)
[2016-08-07] MEDS: DUONEB (A & A) INH SCH ×2 (03:50→07:22)
[2016-08-07 10:04] VITALS: BP 107/62
[2016-08-08] MEDS ORDERED: PROTONIX IV SCH (15:37)
--- NOTE | 2016-08-10 17:30 | Extremity Venous Study ---
PROCEDURE NAME: Venous U/S Bilateral Legs - 08/01/2016 BILATERAL LOWER EXTREMITY VENOUS DUPLEX AND COLOR FLOW IMAGING STUDY: TECHNIQUE: Using the [email or web address] Vivid E9 ultrasound System with a 9 L-D transducer. REFERRING PHYSICIANS: Dr. Cedeño. SWIFT TENDER: Xiomara Booth RVT. INDICATIONS: Swelling of the limb. ICD-10: M79.89. FINDINGS: Right common femoral vein and its branches, deep and superficial femoral veins were satisfactorily imaged. They had flow through them and were compressible. Right popliteal vein and the deep veins below the right knee were all compressible and had flow through them. The superficial veins of the right lower extremity were compressible throughout their length. The left common femoral vein and its branches, deep and superficial femoral veins were also satisfactorily imaged. They had flow through them and were compressible. Left popliteal vein and the deep veins below the left knee were all compressible and had flow through them. The superficial veins of the left lower extremity were compressible throughout their length. INTERPRETATION: No evidence of acute deep or superficial venous thrombosis of the bilateral lower extremities.
--- NOTE | 2016-08-15 10:06 | DISCHARGE SUMMARY ---
ADMISSION DATE: 07/31/2016 DISCHARGE DATE: 08/07/2016 FINAL DISCHARGE DIAGNOSES: 1. Upper gastrointestinal bleed. 2. Gastric outlet obstruction. 3. Severe esophagitis. 4. Metastatic gastric cancer. 5. Leukocytosis. 6. Acute bronchitis. 7. Dysphagia secondary to gastric outlet obstruction. 8. Oral candidiasis. 9. Thrombocytopenia. 10. Stage III chronic kidney disease. CONSULTATIONS REQUESTED DURING THIS HOSPITAL STAY: 1. Oncology consultation with Dr. Mckeon. 2. GI consultation with Dr. Mehta. 3. Cardiology consultation with Dr. Hernandez. PROCEDURES PERFORMED DURING THIS HOSPITAL STAY: EGD which revealed severe esophagitis to the distal third of the esophagus. Gastric mass and gastric outlet obstruction. HOSPITAL COURSE: Ms. Moura is a 81-year-old female with a history of known metastatic gastric carcinoma, who presented to the ER with respiratory distress. A chest x-ray was done on admission that revealed severely low lung volumes with trace pleural effusions. The patient has a known history of COPD. The patient was admitted and started on broad-spectrum antibiotics, steroids and bronchodilator therapy. The patient's oncologist, Dr. Gonzalez, was also consulted given the patient's cancer history. Over the course of the hospital stay, the patient did develop paroxysmal atrial fibrillation and cardiology saw the patient, but at the time of the assessment the patient was back in normal sinus rhythm. The patient was noted to have a persistent leukocytosis, so ID was consulted for further assistance with antibiotic management. The patient also developed an inability to swallow solids or liquids, so she was made n.p.o. and started on TPN. It was then decided that the patient would benefit from an EGD. The day before the EGD, the patient had an episode of hematemesis and was transferred to the ICU. The patient was placed on a Protonix drip. The following day, the patient underwent an EGD that revealed severe esophagitis and gastric outlet obstruction. This was discussed extensively with the family, who opted to make the patient a DNR level 1, and arrangements were made for the patient to be discharged home with hospice. The patient was seen by the palliative care service and arrangements were made. The patient was discharged home with hospice on 08/07/2016. cc: Yolanda Mello MD
== END 2016-08-07 11:40 | disposition hospice, home (50) ==
LOC: EDBD → ED 12:14 → 3N 17:02 → ICU 08-05 16:49
PROVIDERS: ATTEND Internal Medicine